=== PATIENT | female | born 1980 | race African-American/Black ===

== ENCOUNTER 2017-03-22 09:22 | Emergency (ER) | payer OTHER ==
[2017-03-22 09:30] VITALS: BMI 37.1
--- NOTE | 2017-03-22 10:41 | PDOC ---
History of Present Illness - General History Source: Patient Exam Limitations: No Limitations <Vilma Campo - Last Filed: 03/22/17 15:28> - General History Source: Patient Exam Limitations: No Limitations - History of Present Illness Initial Comments: 03/22/17 10:41 The patient is a 36 year old female, with a significant past medical history of DM ,HTN, HLD. Sickle cell trait, GERD who presents to the emergency department with chest pain for the past 8 months. Patient complains of intermittent, L sided chest pain radiating to L arm, ranging 5/10 in severity with no associated SOB. Patient states she was recently diagnosed with Breast CA 2 months ago. She reports negative stress tests in the past. Patient presents to the ED for further evaluation. She denies headache or dizziness. She denies fever, chills, abdominal pain, nausea, vomit, diarrhea or constipation. She denies dysuria, frequency, urgency or hematuria. Allergies: NKA Past surgical history: Tubal ligation Social history: Current everyday smoker Family history: Breast CA PCP: Dr. Amos Peterson <Consuelo Mendoza - Last Filed: 03/22/17 15:32> - General Chief Complaint: Chest Pain Stated Complaint: CHEST PAIN Time Seen by Provider: 03/22/17 09:37 Past History - Past Medical History Diabetes: Yes HTN: Yes Hypercholesterolemia: Yes - Psycho/Social/Smoking Cessation Hx Suicidal Ideation: No Smoking History: Current every day smoker Number of Cigarettes Smoked Daily: 1 Information on smoking cessation initiated: Yes 'Breaking Loose' booklet given: 03/22/17 Hx Alcohol Use: No Drug/Substance Use Hx: No Substance Use Type: None Hx Substance Use Treatment: No <Vilma Campo - Last Filed: 03/22/17 15:28> <Consuelo Mendoza - Last Filed: 03/22/17 15:32> - Past Medical History Allergies/Adverse Reactions: Allergies Allergy/AdvReac Type Severity Reaction Status Date / Time No Known Allergies Allergy Verified 03/22/17 09:30 Review of Systems - Review of Systems Able to Perform ROS?: Yes Comments:: 03/22/17 10:41 GENERAL/CONSTITUTIONAL: No fever or chills. No weakness. HEAD, EYES, EARS, NOSE AND THROAT: No change in vision. No ear pain or discharge. No sore throat. GASTROINTESTINAL: No nausea, vomiting, diarrhea or constipation. GENITOURINARY: No dysuria, frequency, or change in urination. CARDIOVASCULAR: + chest pain . No shortness of breath. RESPIRATORY: No cough, wheezing, or hemoptysis. MUSCULOSKELETAL: No joint or muscle swelling or pain. No neck or back pain. SKIN: No rash NEUROLOGIC: No headache, vertigo, loss of consciousness, or change in strength/ sensation. ENDOCRINE: No increased thirst. No abnormal weight change. HEMATOLOGIC/LYMPHATIC: No anemia, easy bleeding, or history of blood clots. ALLERGIC/IMMUNOLOGIC: No hives or skin allergy. <Consuelo Mendoza - Last Filed: 03/22/17 15:32> *Physical Exam - Vital Signs Last Vital Signs Temp Pulse Resp BP Pulse Ox 98.2 F 93 H 18 129/81 100 03/22/17 09:27 03/22/17 09:27 03/22/17 09:27 03/22/17 09:27 03/22/17 09:27 <Vilma Campo - Last Filed: 03/22/17 15:28> - Vital Signs Last Vital Signs Temp Pulse Resp BP Pulse Ox 98.2 F 93 H 18 129/81 100 03/22/17 09:27 03/22/17 09:27 03/22/17 09:27 03/22/17 09:27 03/22/17 09:27 - Physical Exam Comments: 03/22/17 10:41 GENERAL: Awake, alert, and fully oriented, in no acute distress HEAD: No signs of trauma EYES: PERRLA, EOMI, sclera anicteric, conjunctiva clear ENT: Auricles normal inspection, nares patent, Moist mucosa NECK: Normal ROM, supple, no lymphadenopathy, JVD, or masses LUNGS: Breath sounds equal, clear to auscultation bilaterally. No wheezes, and no crackles HEART: Regular rate and rhythm, normal S1 and S2, no murmurs, rubs or gallops ABDOMEN: Soft, nontender, normoactive bowel sounds. No guarding, no rebound. No masses EXTREMITIES: +Obese. Normal range of motion, no edema. No clubbing or cyanosis. No cords, erythema, or tenderness. NEUROLOGICAL: Normal speech SKIN: + Minimal tenderness in L axillary. Warm, Dry, normal turgor, no rashes or lesions noted. <Consuelo Mendoza - Last Filed: 03/22/17 15:32> ED Treatment Course - LABORATORY CBC & Chemistry Diagram: 03/22/17 10:34 03/22/17 11:03 - RADIOLOGY Radiology Studies Ordered: Category Date Time Status CHEST PA & LAT [RAD] Stat Radiology 03/22/17 10:08 Ordered <JahairaVilma - Last Filed: 03/22/17 15:28> - LABORATORY CBC & Chemistry Diagram: 03/22/17 10:34 03/22/17 11:03 <Consuelo Mendoza - Last Filed: 03/22/17 15:32> Medical Decision Making - Medical Decision Making 03/22/17 10:37 36 yo F with h/o left axilla pain x 8 months, . pt states pain comes and goes no triggers. no alleviating factors. no f/c no leg swelling. no recent travel. no trauma. no h/o dvt or pe. has had prior cardiac workup, which was stress test ( dr. Smith habilitative interventionist ) which was normal. also had breast mammogram and ultrasound which showed a left breast mass , recommend 3 mo followup. has family h;/o paternal grandmother with breast ca. her pcp is amos Peterson. no cough. no weigh loss, here for more answers as pain is persitant. on exam pt awake alert lungs clear. heart RRR no mrg. abd soft NT obses. ext wwp no edema no calf tenderness. nuero awake alert . plan: will repeat trop add d dimer r/o pe, cxr r/o mass or other pathology lungs. nini review records. give appropriate outpt referral . 03/22/17 15:18 pt labs unremarkable. cxr negative. ct chest obtained due to dimer 300, noted pulmonary nodules. pt informed. also noted left breast nodule which pt is aware of and prominant left axillary node. pt given copy of report and went over all results with her. will refer her to general surgeon for followup . paged pt pcp dr amos peterson to discuss all indings. givein referral to ortho, and general surgery. <Vilma Campo - Last Filed: 03/22/17 15:28> - Medical Decision Making 03/22/17 15:09 Dr. Amos Peterson paged via phone answering service. 03/22/17 15:17 Dr. Amos Peterson paged via phone answering service. 03/22/17 15:27 Dr. Vera returned the page and the patients case was discussed. Will refer to Dr. Vladimir Mcclendon for surgery <Consuelo Mendoza - Last Filed: 03/22/17 15:32> *DC/Admit/Observation/Transfer - Discharge Dispostion Admit: No <Vilma Campo - Last Filed: 03/22/17 15:28> - Attestations Scribe Attestion: 03/22/17 10:42 Documentation prepared by Consuelo Mendoza, acting as medical office asst for Vilma Campo MD <Consuelo Mendoza - Last Filed: 03/22/17 15:32> Diagnosis at time of Disposition: Left axillary pain - Referrals Referrals: Romelia Lugo MD [Staff Physician] - Amos Peterson MD [Primary Care Provider] - Bryant Quinteros MD [Staff Physician] - Vladimir Mcclendon MD [Staff Physician] - - Patient Instructions Printed Discharge Instructions: DI for Atypical Chest Pain Additional Instructions: follow up with DR Peterson. call to schedule within one week. you should also follow up with a breast surgeon Vladimir LOTT. call to schedule ( may even get you into his office tomorrow ). see referral number to schedule. you should also follow up with DR Quinteros call to schedule ( orthopedist). take ibuprofen 600 mg every 8 hours as needed for pain. return for any problems or concerns. your ct scan today showed a left axillary node which needs to be followed up and pulmonary nodules. the pulmonary nodules will need to be repeat with ct scan in 6 mo.
[2017-03-22 10:44] LABS: BASOPHIL 1.5 % (0-2.0); EOSINOPHIL 4.4 % (0-4.5); MCH 28.2 pg (25.7-33.7); MCHC 33.6 g/dl (32.0-36.0); MEAN CELL VOLUME 83.8 fl (80-96); MEAN PLT VOLUME 7.1 fl (7.5-11.1); NEUTROPHILS 53.9 % (42.8-82.8); PLATELET COUNT 382 K/MM3 (134-434); RDW 13.7 % (11.6-15.6); WHITE BLOOD COUNT 9.6 K/mm3 (4.0-10.0)
--- NOTE | 2017-03-22 11:21 | EKG ---
Test Reason : Blood Pressure : / mmHG Vent. Rate : 088 BPM Atrial Rate : 088 BPM P-R Int : 134 ms QRS Dur : 084 ms QT Int : 342 ms P-R-T Axes : 076 008 047 degrees QTc Int : 413 ms NORMAL SINUS RHYTHM POSSIBLE ANTERIOR INFARCT , AGE UNDETERMINED ABNORMAL ECG NO PREVIOUS ECGS AVAILABLE Confirmed by SANDY PEÑA, HARJEET ([id number]) on 03/22/2017 11:21:03 AM Referred By: Confirmed By:HARJEET DELGADO MD
[2017-03-22 13:17] LABS: ANION GAP 8 (8-16); CALCIUM 9.3 mg/dL (8.5-10.1); CO2 26 mmol/L (21-32); CREATININE 0.6 mg/dL (0.55-1.02); GLUCOSE,RANDOM 99 mg/dL (74-106); SGOT/AST 13 U/L (15-37); SGPT/ALT 26 U/L (12-78)
[2017-03-22 13:21] LABS: ALK PHOS 101 U/L (45-117); BILIRUBIN,TOTAL 0.6 mg/dL (0.2-1.0); CPK 161 IU/L (26-192); TOT PROT 7.7 g/dl (6.4-8.2); TROPONIN I < 0.02 ng/ml (0.00-0.05)
[2017-03-22 15:38] VITALS: BP 134/74; PULSE 80; TEMP 98.6
== END 2017-03-22 15:36 | disposition home or self-care (01) ==
LOC: JER 09:22
DX: M79.622 Pain in left upper arm (principal); I10 Essential (primary) hypertension; E11.9 Type 2 diabetes mellitus without complications; E78.5 Hyperlipidemia, unspecified; D57.3 Sickle-cell trait; K21.9 Gastro-esophageal reflux disease without esophagitis; F17.210 Nicotine dependence, cigarettes, uncomplicated
CPT/HCPCS: 36415; 71020-TC; 71275-TC; 80053; 82553; 84484; 84703; 85025; 85379; 93005; 93010; 99285-25

== ENCOUNTER 2017-05-29 09:26 | Day surgery (SDC) | payer OTHER ==
[2017-05-28 14:56] VITALS: BMI 38.7
[2017-05-29 12:27] VITALS: TEMP 98
[2017-05-29 13:09] VITALS: BP 120/69; PULSE 62
--- NOTE | 2017-05-30 11:44 | PATH ---
Surgical Pathology Report Patient Name: SAILAJA BRYANT Med. Rec. #: [id number] /Age/Gender: 1980 (Age: 37) / F Account: [id number] Location: [facility] Taken: 05/29/2017 Received: 05/29/2017 Reported: 05/30/2017 Physicians: Papi Grant M.D. Specimen(s) Received BX BODY ERYTHEMA Clinical History Persistent abdominal pain despite medication Erythema of body, retained fluid Final Diagnosis STOMACH, BODY, BIOPSY: GASTRIC FUNDIC MUCOSA WITH NO PATHOLOGIC CHANGES. IMMUNOSTAIN FOR H. PYLORI IS NEGATIVE. Electronically Signed Peter Guzman M.D. Gross Description Received in formalin, labeled "biopsy body" are 2 archuleta, irregular portions of soft tissue averaging 0.3 cm. in greatest dimension. The specimens are submitted in toto in one cassette. 05/29/201705/29/2017
== END 2017-05-29 13:08 | disposition home or self-care (01) ==
LOC: JASU-ENDO 09:26
PROVIDERS: ATTEND Internal Medicine Gastroenterology
PROC: 0DB68ZX Excision of Stomach, Via Natural or Artificial Opening Endoscopic, Diagnostic (ICD-10-PCS; principal; 2017-05-29 10:30)
DX: K31.89 Other diseases of stomach and duodenum (principal); R10.13 Epigastric pain
CPT/HCPCS: 84703; 88305-TC; 88342-TC

== ENCOUNTER → 2019-03-17 | Day surgery (SDC) | payer OTHER | LOC: JRADUS 10:05 ==

== ENCOUNTER 2019-07-22 11:12 | Emergency (ER) | payer OTHER ==
[2019-07-22 11:35] VITALS: BMI 26.6
--- NOTE | 2019-07-22 12:07 | PDOC ---
Attending Attestation - Resident Resident Name: Yashira Martin - ED Attending Attestation I have performed the following: I have examined & evaluated the patient, The case was reviewed & discussed with the resident, I agree w/resident's findings & plan, Exceptions are as noted - HPI HPI: 07/22/19 13:51 Ms Pitt is a 39 yo F h/o DM, HTN, HLD, Sickle cell trait, GERD, breast mass s/p lumpectomy, liver mass s/p resection, cervical radiculopathy, chronic back pain w/ slight RLE weakness who presents with worsening of her chronic back pain. She typically takes NSAIDS, Tylenol, Flexeril and gabapentin for pain Since Sunday, her pain has been more severe She has not taken any medication for her pain today. Pain in her back radiates down the back of her right leg On account of her pain, she has had difficulty walking as her pain increases with movement She denies trauma, bowel/bladder incontinence, new or worsening weakness, numbness, or fever but she does report that she has never had such severe pain in her leg before. PMH: DM, GERD, HTN, HLD Meds: Jentadueto, Losartan, Famotidine, Neurontin, Humalog, Atorvastatin, HCTZ, Singulair 07/22/19 14:00 - Physicial Exam PE: 07/22/19 12:07 General: Comfortable, no acute distress HEENT: PERRL, EOMI, MMM, voice normal, normal neck ROM, no LAD Cards: RRR, no murmur appreciated Pulm: Comfortable on room air, clear to auscultation bilaterally Abd: Soft, nontender, nondistended Back: TTP over right lumbar paraspinal m. No erythema, no warmth, no deformity Ext: Atraumatic. No LE edema. ROM intact. Strength 5/5 and equal bilaterally, sensation is intact, dorsi and plantar flexion at the ankle/knee intact Pt has pain with movement at the hip Vasc: Extremities WWP. Skin: Normal color, no rashes or lesions Neuro: A&Ox3, CN grossly intact, normal speech, motor/sensory grossly intact and symmetric Psych: Mood appropriate to situation 07/25/19 07:44 - Medical Decision Making 07/22/19 14:01 39 yo f h/o chronic back pain presenting with a complaint of worsening back pain with radiculopathy S/p imaging Will do: Analgesia Re Assess 07/22/19 14:17 Attempted to re assess this patient Could not find her 07/22/19 14:33 Pt had actually gone to the bathroom Pt was given toradol, Tylenol, Valium (she has transportation home), Lidocaine patch Pt states that her back pain is chronic, unchanged from prior She is requesting to be discharged home. Will follow up with PMD.
--- NOTE | 2019-07-22 12:56 | PDOC ---
History of Present Illness - General Chief Complaint: Back Pain Stated Complaint: BACK PAIN Time Seen by Provider: 07/22/19 12:04 - History of Present Illness Initial Comments: Edwige Pitt is a 39yo woman with a PMH of DM, HTN, HLD, Sickle cell trait, GERD, breast mass s/p lumpectomy, liver mass s/p resection, cervical radiculopathy, chronic back pain w/ slight RLE weakness who presents with worsening of her chronic back pain. She states that she generally takes naproxen, ibuprofen, acetaminiophen, Flexeril and gabapentin for her pain, but since Sunday the pain has been more severe than usual. She is unable to report how often she has been taking her pain medications, but she reports that she has them all available at home. She did not take any medication today. In addition to the chronic back pain, she also reports leg pain is located down the back of her right leg. It does not radiate and is present constantly. She is unable to describe the quality of the pain. Ms Pitt states that she is able to stand and walk but reports increased pain with movement. She denies bowel/bladder incontinence, new or worsening weakness , numbness, or fever but she does report that she has never had such severe pain in her leg before. She does endorse RLE weakness and says that she has had "nerve tests" in the past and one scheduled for later this week. Past History - Past Medical History Allergies/Adverse Reactions: Allergies Allergy/AdvReac Type Severity Reaction Status Date / Time No Known Allergies Allergy Verified 03/22/17 09:30 Home Medications: Ambulatory Orders Aspirin [Aspirin EC] 81 mg PO DAILY 05/28/17 Linagliptin/Metformin HCl [Jentadueto 2.5 mg-500 mg Tab] 1 each PO BID 05/28/17 Losartan Potassium 100 mg PO DAILY 05/28/17 Famotidine 20 mg PO BID 05/29/17 Fenofibrate Nanocrystallized [Fenofibrate] 145 mg PO DAILY 05/29/17 Gabapentin [Neurontin -] 100 mg PO BID 05/29/17 Insulin Lispro [Humalog Kwikpen U-100] 100 unit SQ PRN PRN 05/29/17 Atorvastatin Calcium 40 mg PO HS 07/22/19 Chlorzoxazone 500 mg PO ASDIR PRN 07/22/19 Hydrochlorothiazide [Hctz -] 12.5 mg PO DAILY 07/22/19 Lidocaine 5% Patch [Lidoderm -] 1 patch TP DAILY #7 patch 07/22/19 Montelukast Sodium [Singulair] 10 mg PO HS 07/22/19 Cardiac Disorders: Yes (PALPITATIONS) Diabetes: Yes (NIDDM) GI Disorders: Yes (GERD, CONSTIPATION, IBS) HTN: Yes Hypercholesterolemia: Yes - Psycho Social/Smoking Cessation Hx Smoking History: Smoker current status UNK Have you smoked in the past 12 months: Yes Number of Cigarettes Smoked Daily: 3 'Breaking Loose' booklet given: 03/22/17 Hx Alcohol Use: No Drug/Substance Use Hx: No Substance Use Type: None Hx Substance Use Treatment: No Review of Systems - Review of Systems Comments:: General: No fevers, no chills, no weight or appetite change, no malaise HEENT: No changes in vision, no changes in hearing, no congestion, no sore throat CV: No chest pain, no palpitations, no LE edema Pulm: No SOB, no cough, no wheezing GI: No nausea or vomiting, no change in bowel habits, no melena : No frequency, no urgency, no dysuria Musc: See HPI Skin: No rash, no lesions, no erythema Endo: No excessive thirst, no heat/cold intolerance Heme: No unusual bruising or bleeding, no swollen glands Neuro: No syncope, no numbness/tingling, no focal weakness Vasc: No claudication Psych: No recent change in mood, no SI or HI *Physical Exam - Vital Signs Last Vital Signs Temp Pulse Resp BP Pulse Ox 98.2 F 85 18 143/85 98 07/22/19 11:34 07/22/19 11:34 07/22/19 11:34 07/22/19 11:34 07/22/19 11:34 - Physical Exam General: Comfortable, no acute distress HEENT: PERRL, EOMI, MMM, voice normal, normal neck ROM, no LAD Cards: RRR, no murmur appreciated Pulm: Comfortable on room air, clear to auscultation bilaterally Abd: Soft, nontender, nondistended Back: TTP over right lumbar paraspinal m. No erythema, no warmth, no deformity Rectal: Declined Ext: Atraumatic. No LE edema. ROM intact. Strength 5/5 and equal bilaterally Vasc: Extremities WWP. Skin: Normal color, no rashes or lesions Neuro: A&Ox3, CN grossly intact, normal speech, motor/sensory grossly intact and symmetric Psych: Mood appropriate to situation Medical Decision Making - Medical Decision Making 07/22/19 12:50 Edwige Pitt is a 39yo woman with a PMH of DM, HTN, HLD, Sickle cell trait, GERD, breast mass s/p lumpectomy, liver mass s/p resection, cervical radiculopathy, chronic back pain w/ slight RLE weakness who presents with worsening of her chronic back pain. - Called PMD's office for more information. Dr Escamilla's PA states that she has been seen multiple times for the same symptoms. Has had imaging and seen neuro in the past. Recommending pain control for exacerbation of chronic pain - No red flag symptoms - Discussed pain control w/ Ms Yoandy. - IM toradol, PO acetaminophen, PO valium, lidocaine patch - Reassess 07/22/19 14:20 - Patient received meds 1hr ago, went to reassess. Pt could not be located. Will check back in a few minutes. 07/22/19 14:33 - Patient found. States pain is still severe but requesting to be discharged home. Will follow up with PMD. - As pt is neurologically intact and does not have any objective strength deficits on exam, will d/c home. Discussed with Dr Ismael Martin PGY2 Discharge - Discharge Information Problems reviewed: Yes Clinical Impression/Diagnosis: Acute exacerbation of chronic low back pain Condition: Stable Disposition: HOME - Admission No - Additional Discharge Information Prescriptions: Lidocaine 5% Patch [Lidoderm -] 1 patch TP DAILY #7 patch - Follow up/Referral Referrals: Amos Escamilla MD [Primary Care Provider] - - Patient Discharge Instructions Patient Printed Discharge Instructions: DI for Back Pain With Sciatica Additional Instructions: Discharge Instructions: You were seen in the emergency department for a flare-up of your back pain. Home Care and Follow Up: - Continue to take all of your regular home medications. - 650-1000mg acetaminophen (Tylenol) or 600mg ibuprofen (Motrin or Advil) can be used every 6-8 hours. If needed for continued pain, these medications may be alternated every 3-4 hours. For example, if you take ibuprofen at 9am, you may take acetaminophen at noon, ibuprofen at 3pm, etc. - It is strongly recommended that you take ibuprofen with food to help prevent stomach irritation. - You have been prescribed a numbing patch that contains lidocaine that can be placed over the areas of greatest pain. . This is sometimes expensive as a prescription but is also available over the counter at most pharmacies. (the [id number] patch is 4% lidocaine). The lidocaine patch may be placed for 12 hours then removed for 12 hours. - Try using an ice pack for 20 minutes every hour or a heating pad for additional pain control. These should NOT be used over the lidocaine patch, but you may place them over the areas of pain while the patch is off. - Do not stop moving around. As much as you can tolerate, continue to do light exercise and stretching exercises. Increase your activity level as much as you can tolerate daily. - Please see your regular doctor within the next week for follow up. It is recommended that you discuss a referral to physical therapy with your regular doctor. - Seek immediate medical care if you have significant worsening of your symptoms , you have new weakness in your legs, you have numbness in your legs, you have urinary or bowel incontinence, or you have any other medical emergency. - Post Discharge Activity
[2019-07-22] MEDS ORDERED: LIDOCAINE 5% TOPICAL PATCH TP ONE (12:57)
[2019-07-22] MEDS ORDERED: diazePAM 5 MG TABLET PO ONE (12:57)
[2019-07-22] MEDS ORDERED: KETOROLAC TROMETHAMINE 60 MG/2 ML VIAL IM ONE (12:57)
[2019-07-22] MEDS ORDERED: ACETAMINOPHEN 325 MG TABLET (FP) PO ONE (12:57)
[2019-07-22] MEDS ORDERED: KETOROLAC TROMETHAMINE 60 MG/2 ML VIAL ONE (13:14)
[2019-07-22] MEDS ORDERED: ACETAMINOPHEN 325 MG TABLET (FP) ONE (13:14)
[2019-07-22] MEDS ORDERED: diazePAM 5 MG TABLET ONE (13:15)
[2019-07-22] MEDS ORDERED: LIDOCAINE 5% TOPICAL PATCH ONE (13:15)
[2019-07-22 14:47] VITALS: BP 132/80; PULSE 75; TEMP 98.1
== END 2019-07-22 14:47 | disposition home or self-care (01) ==
LOC: JER 11:12
PROC: 3E0233Z Introduction of Anti-inflammatory into Muscle, Percutaneous Approach (ICD-10-PCS; principal; 2019-07-22)
DX: M54.5 Low back pain (principal); G89.29 Other chronic pain; E11.9 Type 2 diabetes mellitus without complications; I10 Essential (primary) hypertension; E78.5 Hyperlipidemia, unspecified; K21.9 Gastro-esophageal reflux disease without esophagitis; D57.3 Sickle-cell trait; M54.12 Radiculopathy, cervical region
CPT/HCPCS: 96372; 99282-25

== ENCOUNTER 2020-03-26 22:46 | Inpatient (IN) | payer OTHER ==
--- NOTE | 2020-03-26 22:57 | PDOC ---
History of Present Illness - General Chief Complaint: Nausea/Vomiting Stated Complaint: FEVER - History of Present Illness Initial Comments: Pt is a 39yo F with PMH DM, HTN, HLD, breast mass s/p lumpectomy, liver mass s/p resection who presents with fever, nausea, and vomiting. Symptoms began yesterday. States that two weeks ago, she was feeling similarly with fever, nausea, vomiting, and diarrhea and went to her PCP, where they did a covid swab but she did not get her results. States that she felt better over the last 10 days, with improvement of symptoms. However yesterday, states that she started to feel subjectively feverish and nauseous. Yesterday she was able to tolerate PO intake, however reports decreased appetite. This morning, she measured her temp at 102 and this evening it was 101. She has been unable to eat or tolerate water today, she drank coffee in the am which stayed down. She attempted to eat chicken noodle soup this evening, and immediately vomited it afterwards. States vomit is NBNB, foodlike with about 5-6 episodes today. A/w body aches all over. Had a bowel movement yesterday. States that she attempted to take Tylenol, but immediately vomited it afterwards. PCP: Francine PMH:see HPI PSH: see above, tubal ligation Meds: see chart Allergies NKDA Social: smokes 3 cigarettes/day, occasional etoh use, tried marijuana once today for appetite stimulation Review of Systems CONSTITUTIONAL:reports fever, chills, generalized weakness, malaise, loss of appetite HEENT:denies rhinorrhea, nasal congestion, sore throat, throat swelling, difficulty swallowing, mouth swelling, ear pain, eye pain, visual changes CARDIOVASCULAR:reports chest pain (ache everywhere i have a pulse), palpitations RESPIRATORY:reports SOB, wheezing GASTROINTESTINAL: reports abdominal pain, nausea, vomiting; denies diarrhea, constipation, melena, hematochezia GENITOURINARY:denies dysuria, frequency, urgency, hesitancy, hematuria MUSCULOSKELETAL:reports myalgia HEMATOLOGIC/IMMUNOLOGIC:denies easy bleeding, easy bruising ENDOCRINE: denies unexplained weight gain, unexplained weight loss NEUROLOGIC:denies headache, loss of consciousness, focal weakness or paresthesias, dizziness, unsteady gait, mental status changes, bladder or bowel incontinence SKIN:denies rash, itching, pallor Physical Exam General: awake, alert, fully oriented, in mild distress, well developed, well nourished Head: normocephalic, atraumatic Eyes: PERRL, EOMI, anicteric sclera, conjunctiva clear ENT: hearing grossly normal, nares patent, oropharynx clear without exudates. No nasal congestion Moist mucous membranes Neck: supple, normal ROM, no LAD, JVD or masses Lung: equal breath sounds b/l, CTA b/l, diffuse wheezes; no distress, speaks full sentences Heart: tachycardic, normal S1, S2, systolic murmur at LLSB Abdomen: soft, non tender, normoactive bowel sounds, no guarding, rebound, masses Extremities: normal ROM, no edema, no erythema or tenderness, DP/PT pulses 2+ and symmetric, no clubbing, cyanosis Neuro: CN2-12 grossly intact, moves all extremities, normal speech, normal gait, sensation intact Skin: warm, dry, no rashes or lesions noted Past History - Medical History Allergies/Adverse Reactions: Allergies Allergy/AdvReac Type Severity Reaction Status Date / Time No Known Allergies Allergy Verified 03/26/20 22:53 Home Medications: Ambulatory Orders Aspirin [Aspirin EC] 81 mg PO DAILY 05/28/17 Linagliptin/Metformin HCl [Jentadueto 2.5 mg-500 mg Tab] 1 each PO BID 05/28/17 Losartan Potassium 100 mg PO DAILY 05/28/17 Famotidine 20 mg PO BID 05/29/17 Fenofibrate Nanocrystallized [Fenofibrate] 145 mg PO DAILY 05/29/17 Gabapentin [Neurontin -] 100 mg PO BID 05/29/17 Insulin Lispro [Humalog Kwikpen U-100] 100 unit SQ PRN PRN 05/29/17 Atorvastatin Calcium 40 mg PO HS 07/22/19 Chlorzoxazone 500 mg PO ASDIR PRN 07/22/19 Hydrochlorothiazide [Hctz -] 12.5 mg PO DAILY 07/22/19 Lidocaine 5% Patch [Lidoderm -] 1 patch TP DAILY #7 patch 07/22/19 Montelukast Sodium [Singulair] 10 mg PO HS 07/22/19 Omeprazole 20 mg PO DAILY 03/27/20 Cardiac Disorders: Yes (PALPITATIONS) COPD: No Diabetes: Yes (NIDDM) GI Disorders: Yes (GERD, CONSTIPATION, IBS) HTN: Yes Hypercholesterolemia: Yes - Surgical History GI Surgery: (08/2018 partial liver removal) - Reproductive History Is Patient Now?: No - Psycho-Social/Smoking History Smoking History: Current every day smoker Have you smoked in the past 12 months: Yes Number of Cigarettes Smoked Daily: 3 Information on smoking cessation initiated: No 'Breaking Loose' booklet given: 03/22/17 - Substance Abuse Hx (Audit-C & DAST Scrn) How often the patient has a drink containing alcohol: Monthly or less Score: In Men: 4 or > Positive; In Women: 3 or > Positive: 1 Screen Result (Pos requires Nsg. Audit-10AR): Negative *Physical Exam - Vital Signs Last Vital Signs Temp Pulse Resp BP Pulse Ox 101.3 F H 122 H 20 156/60 99 03/26/20 22:49 03/26/20 22:49 03/26/20 22:49 03/26/20 22:49 03/26/20 22:49 ED Treatment Course - LABORATORY CBC & Chemistry Diagram: 03/28/20 06:15 03/28/20 06:15 Medical Decision Making - Medical Decision Making Pt is a 39yo F with PMH DM, HTN, HLD, breast mass s/p lumpectomy, liver mass s/p resection who presents with fever, nausea, and vomiting. Vital Signs Period Temp Pulse Resp BP Sys/Shoemaker Pulse Ox Last 24 Hr 101.3 F 122 20 156/60 99 DDx: COVID, gastroenteritis, gastritis, PUD, GERD Plan: labs, ekg, CXR, IVF, antiemetics, pain control EKG: HR 110bpm, sinus tachycardia, DC 130ms, QRS 86ms, QTc 430ms, no ST changes Labs: leukocytosis, thrombocytosis, no anemia; electrolytes WNL; LDH, ferritin WNL Laboratory Tests 03/26/20 03/26/20 03/26/20 11:04 11:04 11:04 WBC 18.6 H RBC 4.35 Hgb 11.8 Hct 35.7 MCV 82.2 MCH 27.2 MCHC 33.1 RDW 14.0 Plt Count 453 H MPV 7.6 D Absolute Neuts (auto) 15.9 H Neutrophils % 85.2 H D Lymphocytes % 10.6 D Monocytes % 3.6 L Eosinophils % 0.3 D Basophils % 0.3 Nucleated RBC % 0 Sodium 136 Potassium 3.5 Chloride 99 Carbon Dioxide 28 Anion Gap 9 BUN 9.6 Creatinine 0.9 Est GFR (CKD-EPI)AfAm 93.35 Est GFR (CKD-EPI)NonAf 80.54 Random Glucose 173 H Calcium 9.7 Magnesium 1.7 L Ferritin 46.8 Total Bilirubin 0.5 AST 9 L ALT 17 Alkaline Phosphatase 79 LD Total 182 Total Protein 7.6 Albumin 3.7 Serum , Qual Negative Pt signed out to night team pending reassessment Discharge - Discharge Information Problems reviewed: Yes Clinical Impression/Diagnosis: Nausea & vomiting Qualifiers: Vomiting type: unspecified Vomiting Intractability: non-intractable Qualified Code(s): R11.2 - Nausea with vomiting, unspecified Fever Qualifiers: Fever type: unspecified Qualified Code(s): R50.9 - Fever, unspecified Sepsis Qualifiers: Sepsis type: sepsis due to unspecified organism Sepsis acute organ dysfunction status: without acute organ dysfunction Qualified Code(s): A41.9 - Sepsis, unsp ecified organism Condition: Guarded - Admission Yes - Follow up/Referral - Patient Discharge Instructions - Post Discharge Activity
[2020-03-26] MEDS ORDERED: SODIUM CHLORIDE 1,000 ML IV STA (22:59)
[2020-03-26] MEDS ORDERED: ONDANSETRON 4 MG/2 ML VIAL IVPUSH ONE (22:59)
[2020-03-26] MEDS ORDERED: ACETAMINOPHEN 1000 MG/100 ML VIAL (NON FORMULARY) IVPB ONE (23:23)
[2020-03-26] MEDS ORDERED: FAMOTIDINE 20 MG/50 ML IVPB 20 MG/50 ML MG IVPB ONE ×2 (23:24→23:26)
[2020-03-26] MEDS ORDERED: ACETAMINOPHEN INJECTION 100 ML IVPB ONE (23:25)
[2020-03-26 23:31] LABS: BASO % 0.3 % (0-2.0); EOS % 0.3 % (0-4.5); HEMATOCRIT 35.7 % (32.4-45.2); HEMOGLOBIN 11.8 GM/dL (10.7-15.3); LYMPH % 10.6 % (8-40); MCH 27.2 pg (25.7-33.7); MCHC 33.1 g/dl (32.0-36.0); MEAN CELL VOLUME 82.2 fl (80-96); MEAN PLT VOLUME 7.6 fl (7.5-11.1); MONO % 3.6 % (3.8-10.2); NEUT % 85.2 % (42.8-82.8); PLATELET COUNT 453 K/MM3 (134-434); RBC 4.35 M/mm3 (3.60-5.2); WHITE BLOOD COUNT 18.6 K/mm3 (4.0-10.0)
[2020-03-26 23:58] LABS: ALBUMIN 3.7 g/dl (3.4-5.0); BILIRUBIN,TOTAL 0.5 mg/dL (0.2-1); BLOOD UREA NITROGEN 9.6 mg/dL (7-18); CALCIUM 9.7 mg/dL (8.5-10.1); CREATININE 0.9 mg/dL (0.55-1.3); MAGNESIUM 1.7 mg/dL (1.8-2.4); POTASSIUM 3.5 mmol/L (3.5-5.1); TOT PROT 7.6 g/dl (6.4-8.2)
[2020-03-27] MEDS ORDERED: MAGNESIUM SULF 50% (8.12 MEQ/2 ML-1 GM VIAL) IVPB ONE (00:41)
[2020-03-27] MEDS ORDERED: SODIUM CHLORIDE 0.9% 500 ML INFUS.BAG IV ONE (01:00)
[2020-03-27] MEDS ORDERED: MAGNESIUM 1GM/D5W - 1 GM/100 ML IVPB IVPB ONE (01:07)
--- NOTE | 2020-03-27 01:17 | PDOC ---
Documentation entered by Bubba Leon SCRIBE, acting as scribe for Di Perkins MD. Di Perkins MD: This documentation has been prepared by the Carolyn medellin Xhesika, SCRIBE, under my direction and personally reviewed by me in its entirety. I confirm that the documentation accurately reflects all work, treatment, procedures, and medical decision making performed by me. Attending Attestation - Resident Resident Name: DannyMinoo - ED Attending Attestation I have performed the following: I have examined & evaluated the patient, The case was reviewed & discussed with the resident, I agree w/resident's findings & plan - HPI HPI: 03/26/20 23:04 The patient is a 39y/o F with a PMH of DM, HTN, HLD, Sickle cell trait, GERD, breast ca s/p lumpectomy, liver mass s/p resection, cervical radiculopathy, chronic back pain w/ slight RLE weakness who presents to the ED with fever, nausea, vomiting and bodyaches [id number]. Pt states all her family members work and are possibly exposed to COVID. Allergies: NKDA - Physicial Exam PE: 03/26/20 23:26 GENERAL: Awake, alert, and fully oriented, in no acute distress. +febrile HEAD: No signs of trauma EYES: PERRLA, EOMI, sclera anicteric, conjunctiva clear ENT: Auricles normal inspection, hearing grossly normal, nares patent, oropharynx clear without exudates. Moist mucosa NECK: Normal ROM, supple, no lymphadenopathy, JVD, or masses LUNGS: Breath sounds equal, clear to auscultation bilaterally. No wheezes, and no crackles HEART: +tachy, no murmurs, rubs or gallops ABDOMEN: Soft, nontender, normoactive bowel sounds. No guarding, no rebound. No masses EXTREMITIES: Normal range of motion, no edema. No clubbing or cyanosis. No cords, erythema, or tenderness NEUROLOGICAL: Cranial nerves II through XII grossly intact. SKIN: Warm, Dry, normal turgor, no rashes lesions noted. - Medical Decision Making 03/26/20 23:09 DM ,HTN, HLD. Sickle cell trait, GERD 03/26/20 23:58 WBC 18+ with left shift 03/27/20 00:49 Pt's fever is down and she is feeling better; she was hydrated. Pt will be treated with IV magnesium and she will be discharged home. COVID test is pending. 03/27/20 02:01 CXR normal Pt stable for d/c home Discharge - Discharge Information Problems reviewed: Yes Clinical Impression/Diagnosis: Fever, Sepsis Nausea & vomiting Qualifiers: Vomiting type: unspecified Vomiting Intractability: non-intractable Qualified Code(s): R11.2 - Nausea with vomiting, unspecified Condition: Guarded - Follow up/Referral - Patient Discharge Instructions - Post Discharge Activity
--- NOTE | 2020-03-27 01:27 | PDOC ---
*Physical Exam - Vital Signs Last Vital Signs Temp Pulse Resp BP Pulse Ox 101.3 F H 122 H 20 156/60 99 03/26/20 22:49 03/26/20 22:49 03/26/20 22:49 03/26/20 22:49 03/26/20 22:49 - Physical Exam 03/27/20 08:25 GENERAL: Awake, alert, and fully oriented, in no acute distress HEAD: No signs of trauma, normocephalic, atraumatic EYES: PERRLA, EOMI, sclera anicteric, conjunctiva clear ENT: Auricles normal inspection, hearing grossly normal, nares patent, oropharynx clear without exudates. Moist mucosa NECK: Normal ROM, supple, no lymphadenopathy, JVD, or masses LUNGS: No distress, speaks full sentences, clear to auscultation bilaterally HEART: tachycardic and regular rhythm, normal S1 and S2, no murmurs, rubs or gallops, peripheral pulses normal and equal bilaterally. ABDOMEN: Soft, nontender, normoactive bowel sounds. No guarding, no rebound. No masses EXTREMITIES : Normal inspection, Normal range of motion, no edema. No clubbing or cyanosis. NEUROLOGICAL: Cranial nerves II through XII grossly intact. Normal speech, normal gait, no focal sensorimotor deficits SKIN: Warm, Dry, normal turgor, no rashes or lesions noted ED Treatment Course - LABORATORY CBC & Chemistry Diagram: 03/26/20 11:04 03/26/20 11:04 - ADDITIONAL ORDERS Additional order review: Laboratory Results 03/26/20 03/26/20 11:04 11:04 Sodium 136 Potassium 3.5 Chloride 99 Carbon Dioxide 28 Anion Gap 9 BUN 9.6 Creatinine 0.9 Est GFR (CKD-EPI)AfAm 93.35 Est GFR (CKD-EPI)NonAf 80.54 Random Glucose 173 H Calcium 9.7 Magnesium 1.7 L Ferritin 46.8 Total Bilirubin 0.5 AST 9 L ALT 17 Alkaline Phosphatase 79 LD Total 182 Total Protein 7.6 Albumin 3.7 Serum , Qual Negative 03/26/20 11:04 RBC 4.35 MCV 82.2 MCHC 33.1 RDW 14.0 MPV 7.6 D Neutrophils % 85.2 H D Lymphocytes % 10.6 D Monocytes % 3.6 L Eosinophils % 0.3 D Basophils % 0.3 - Medications Given in the ED: ED Medications Discontinued Medications Generic Name Dose Route Start Last Admin Trade Name Lawrence PRN Reason Stop Dose Admin Acetaminophen 1,000 mg 03/26/20 23:23 03/26/20 23:32 Ofirmev Injection - IVPB 03/26/20 23:24 1,000 mg ONCE ONE Administration Sodium Chloride 1,000 mls @ 1,000 mls/hr 03/26/20 22:59 03/26/20 23:24 Normal Saline - IV 03/26/20 23:58 1,000 mls/hr ASDIR STA Administration Famotidine/Sodium Chloride 20 mg in 50 mls @ 100 mls/hr 03/26/20 23:24 03/26/20 23:32 Pepcid 20 Mg Premixed Ivpb - IVPB 03/26/20 23:53 100 mls/hr ONCE ONE Administration Ondansetron HCl 4 mg 03/26/20 22:59 03/26/20 23:25 Zofran Injection IVPUSH 03/26/20 23:00 4 mg ONCE ONE Administration Medical Decision Making - Medical Decision Making 03/27/20 01:24 Pt was signed out from Dr. Minoo Delgado. 39 yo female with pmh of dm, htn, hld presenting to ED for fever, nausea vomitting and fatigue. Pt was given fluids, tylenol and antinausa medication. Pt also given blood work which may be infectious etiology due to COVID. Pt expected to get fluids and mg. Pt currently feels mildly better but will give litre of fluid due to BP being 96/54. 03/27/20 02:37 Pt fever still at 101.2. Pt fever has not dropped. Pt has very high wbc. Pt still not feeling well. Pt case discussed with Dr. Vera and admitted to Dr. Vera. Gave quintonsyn for sepsis \ Discharge - Discharge Information Problems reviewed: Yes Clinical Impression/Diagnosis: Fever, Sepsis Nausea & vomiting Qualifiers: Vomiting type: unspecified Vomiting Intractability: non-intractable Qualified Code(s): R11.2 - Nausea with vomiting, unspecified Condition: Guarded - Admission Yes - Follow up/Referral - Patient Discharge Instructions - Post Discharge Activity
[2020-03-27] MEDS ORDERED: PIPERACILLIN/TAZOB 3.375 GM 3.375 GM/50 ML BAG IVPB ONE (03:02)
[2020-03-27] MEDS: PIPERACILLIN/TAZOB 3.375 GM 3.375 GM in DEXTROSE 5%-WATER - 50 ML IVPB ONE ×2 (03:11→09:10)
[2020-03-27] MEDS ORDERED: ONDANSETRON 4 MG/2 ML VIAL IVPUSH PRN (04:42)
[2020-03-27] MEDS ORDERED: PIPERACILLIN/TAZOBACTAM 3.375 GM VIAL IVPB ONE ×3 (04:56→17:46)
[2020-03-27] MEDS ORDERED: DEXTROSE 5%-WATER - 50 ML IVPB ONE ×3 (04:56→17:47)
[2020-03-27] MEDS: ACETAMINOPHEN 325 MG TABLET (FP) PO PRN ×2 (05:03→18:00)
[2020-03-27] MEDS: PIPERACILLIN/TAZOB 3.375 GM 3.375 GM in DEXTROSE 5%-WATER - 50 ML IVPB SCH ×3 (05:04→17:52)
[2020-03-27 05:38] VITALS: BMI 34.1
[2020-03-27 05:57] LABS: EPI CELLS 12 /uL (0-25.1); HYALINE CASTS 1 /uL (0-3.1); PH,URINE 5.5 (5.0-8.0); URINE APPEARANCE CLOUDY; URINE BILIRUBIN NEGATIVE (NEGATIVE); URINE COLOR YELLOW; URINE GLUCOSE (UA) NEGATIVE (NEGATIVE); URINE KETONE NEGATIVE (NEGATIVE); URINE LEUK ESTERASE 1+ (NEGATIVE); URINE NITRITE POSITIVE (NEGATIVE); URINE PROTEIN TRACE (NEGATIVE); URINE RBC 2686 /uL (0-23.9); URINE UROBILINOGEN 0.2 mg/dL (0.2-1.0); URINE WBC 196 /uL (0-25.8)
--- NOTE | 2020-03-27 10:51 | EKG ---
Test Reason : Blood Pressure : / mmHG Vent. Rate : 110 BPM Atrial Rate : 110 BPM P-R Int : 130 ms QRS Dur : 086 ms QT Int : 318 ms P-R-T Axes : 071 017 055 degrees QTc Int : 430 ms SINUS TACHYCARDIA OTHERWISE NORMAL ECG WHEN COMPARED WITH ECG OF 22-MAR-2017 09:36, NO SIGNIFICANT CHANGE WAS FOUND Confirmed by Meryl Irby ([id number]) on 03/27/2020 10:50:44 AM Referred By: Confirmed By:Meryl Irby
--- NOTE | 2020-03-27 11:19 | CON.ID ---
Consult Consult Specialty:: infectious diseases Referred by:: Reason for Consultation:: fever,generalized pain - History of Present Illness Chief Complaint: generalized pain,fevers History of Present Illness: 39y/o F with a PMH of DM, HTN, HLD, Sickle cell trait, GERD, breast ca s/p lumpectomy, liver mass s/p resection, cervical radiculopathy, chronic back pain w/ slight RLE weakness who presents to the ED with fever, nausea, vomiting and bodyaches [id number]. Pt states all her family members work and are possibly expos ed to [employer]. patient currently feels better but still spiking fevers - History Source History Provided By: Patient Limitations to Obtaining History: No Limitations - Past Medical History ...LMP: 03/15/20 ...: No - Alcohol/Substance Use Hx Alcohol Use: No - Smoking History Smoking history: Current every day smoker Have you smoked in the past 12 months: Yes Aproximately how many cigarettes per day: 3 Home Medications - Allergies Allergies/Adverse Reactions: Allergies Allergy/AdvReac Type Severity Reaction Status Date / Time No Known Allergies Allergy Verified 03/26/20 22:53 - Home Medications Home Medications: Ambulatory Orders Aspirin [Aspirin EC] 81 mg PO DAILY 05/28/17 Linagliptin/Metformin HCl [Jentadueto 2.5 mg-500 mg Tab] 1 each PO BID 05/28/17 Losartan Potassium 100 mg PO DAILY 05/28/17 Famotidine 20 mg PO BID 05/29/17 Fenofibrate Nanocrystallized [Fenofibrate] 145 mg PO DAILY 05/29/17 Gabapentin [Neurontin -] 100 mg PO BID 05/29/17 Insulin Lispro [Humalog Kwikpen U-100] 100 unit SQ PRN PRN 05/29/17 Atorvastatin Calcium 40 mg PO HS 07/22/19 Chlorzoxazone 500 mg PO ASDIR PRN 07/22/19 Hydrochlorothiazide [Hctz -] 12.5 mg PO DAILY 07/22/19 Lidocaine 5% Patch [Lidoderm -] 1 patch TP DAILY #7 patch 07/22/19 Montelukast Sodium [Singulair] 10 mg PO HS 07/22/19 Review of Systems - Review of Systems Constitutional: reports: Fever, Weakness Eyes: reports: No Symptoms HENT: reports: No Symptoms Neck: reports: No Symptoms Cardiovascular: reports: No Symptoms Respiratory: reports: No Symptoms Gastrointestinal: reports: Nausea, Vomiting Genitourinary: reports: No Symptoms Musculoskeletal: reports: No Symptoms Integumentary: reports: No Symptoms Neurological: reports: No Symptoms Endocrine: reports: No Symptoms, Unexplained Weight Gain Psychiatric: reports: No Symptoms Physical Exam Vital Signs: Vital Signs Temperature 102.3 F H 03/27/20 03:30 Pulse Rate 100 H 03/27/20 03:30 Respiratory Rate 18 03/27/20 03:30 Blood Pressure 112/60 03/27/20 03:30 O2 Sat by Pulse Oximetry (%) 98 03/27/20 03:30 Constitutional: Yes: Calm, Mild Distress Eyes: Yes: Conjunctiva Clear HENT: Yes: Atraumatic, Normocephalic Neck: Yes: Supple, Trachea Midline Cardiovascular: Yes: Regular Rate and Rhythm Respiratory: Yes: Regular, CTA Bilaterally Gastrointestinal: Yes: Normal Bowel Sounds, Soft Musculoskeletal: Yes: WNL Extremities: Yes: WNL Neurological: Yes: Alert, Oriented Psychiatric: Yes: Alert, Oriented Labs: CBC, BMP 03/26/20 11:04 03/26/20 11:04 Imaging - Results Chest X-ray: Report Reviewed, Image Reviewed Assessment/Plan this patient with multiple medical issues awaiting covid test pending spikng fevers i am going to start patient on zosyn and wait till the results come back for covid monitor fevers hydration rest as per the team
[2020-03-27] MEDS ORDERED: PATIENT'S OWN MEDICATION (NON-FORMULARY) (Fenofibrate Nanocrystallized [Fenofibrate] 145 M PO SCH (12:00)
[2020-03-27] MEDS: GABAPENTIN 100 MG CAPSULE PO SCH ×2 (12:48→21:18)
[2020-03-27] MEDS: SODIUM CHLORIDE 0.45% 1,000 ML IV SCH (12:48)
[2020-03-27] MEDS: PANTOPRAZOLE 40 MG TABLET PO SCH (12:48)
[2020-03-27] MEDS: ASPIRIN COATED 81 MG TABLET.EC PO SCH (12:48)
[2020-03-27] MEDS: ENOXAPARIN NA (PORCINE) 40 MG/0.4 ML DISP.SYRIN SQ SCH (12:48)
[2020-03-27] MEDS ORDERED: INSULIN (NOVOLOG) ASPART 100 UNITS/ML 10ML VIAL ONE (17:46)
[2020-03-27] MEDS: INSULIN SLIDING SCALE (NOVOLOG) 1 VIAL SQ SCH ×2 (17:52→21:21)
[2020-03-27 18:11] LABS: BASO % 0.3 % (0-2.0); EOS % 0.1 % (0-4.5); HEMATOCRIT 31.7 % (32.4-45.2); HEMOGLOBIN 10.7 GM/dL (10.7-15.3); LYMPH % 14.2 % (8-40); MCH 27.5 pg (25.7-33.7); MCHC 33.7 g/dl (32.0-36.0); MEAN CELL VOLUME 81.5 fl (80-96); MEAN PLT VOLUME 7.8 fl (7.5-11.1); MONO % 5.7 % (3.8-10.2); NEUT % 79.7 % (42.8-82.8); PLATELET COUNT 402 K/MM3 (134-434); RDW 13.7 % (11.6-15.6); WHITE BLOOD COUNT 16.6 K/mm3 (4.0-10.0)
[2020-03-27 18:41] LABS: ALBUMIN 3.2 g/dl (3.4-5.0); BILIRUBIN,TOTAL 0.6 mg/dL (0.2-1); CALCIUM 8.5 mg/dL (8.5-10.1); CREATININE 0.7 mg/dL (0.55-1.3); POTASSIUM 3.5 mmol/L (3.5-5.1); TOT PROT 6.7 g/dl (6.4-8.2)
[2020-03-27] MEDS: MONTELUKAST NA 10 MG TABLET PO SCH (21:18)
[2020-03-27] MEDS: ATORVASTATIN CA 40 MG TABLET (FP) PO SCH (21:18)
--- NOTE | 2020-03-27 23:29 | HP ---
Admitting History and Physical - Admission History of Present Illness: Pt is a 39 y/o female with PMH significant for DM, HTN, HLD, breast mass s/p lumpectomy, liver mass s/p resection who presents with fever, nausea, and vomiting for the past 24 hrs. States that two weeks ago, she was feeling similarly with fever, nausea, vomiting, and diarrhea and went to her PCP, where they did a covid swab but she did not get her results. States that she felt better over the last 10 days, with improvement of symptoms. However states that she started to feel subjectively feverish and nauseous. At home she measured her temp at 102 and has had 4-5 episodes of vomiting. In the ER pt found to have WBC of 18,000. - Past Medical History Cardiovascular: Yes: HTN, Hyperlipdemia ...LMP: 03/15/20 ...: No Endocrine: Yes: Diabetes Mellitus - Smoking History Smoking history: Current every day smoker Have you smoked in the past 12 months: Yes Aproximately how many cigarettes per day: 3 - Alcohol/Substance Use Hx Alcohol Use: No Home Medications - Allergies Allergies/Adverse Reactions: Allergies Allergy/AdvReac Type Severity Reaction Status Date / Time No Known Allergies Allergy Verified 03/26/20 22:53 - Home Medications Home Medications: Ambulatory Orders Aspirin [Aspirin EC] 81 mg PO DAILY 05/28/17 Linagliptin/Metformin HCl [Jentadueto 2.5 mg-500 mg Tab] 1 each PO BID 05/28/17 Losartan Potassium 100 mg PO DAILY 05/28/17 Famotidine 20 mg PO BID 05/29/17 Fenofibrate Nanocrystallized [Fenofibrate] 145 mg PO DAILY 05/29/17 Gabapentin [Neurontin -] 100 mg PO BID 05/29/17 Insulin Lispro [Humalog Kwikpen U-100] 100 unit SQ PRN PRN 05/29/17 Atorvastatin Calcium 40 mg PO HS 07/22/19 Chlorzoxazone 500 mg PO ASDIR PRN 07/22/19 Hydrochlorothiazide [Hctz -] 12.5 mg PO DAILY 07/22/19 Lidocaine 5% Patch [Lidoderm -] 1 patch TP DAILY #7 patch 07/22/19 Montelukast Sodium [Singulair] 10 mg PO HS 07/22/19 Omeprazole 20 mg PO DAILY 03/27/20 Family Medical History Family History: Unremarkable Review of Systems - Review of Systems Constitutional: reports: Fever, Loss of Appetite Eyes: reports: No Symptoms HENT: reports: No Symptoms Neck: reports: No Symptoms Cardiovascular: reports: No Symptoms Respiratory: reports: No Symptoms Gastrointestinal: reports: Nausea, Vomiting Genitourinary: reports: No Symptoms Physical Examination Vital Signs: Vital Signs Temperature 98.8 F 03/27/20 21:13 Pulse Rate 89 03/27/20 21:13 Respiratory Rate 18 03/27/20 03:30 Blood Pressure 109/64 03/27/20 21:13 O2 Sat by Pulse Oximetry (%) 95 03/27/20 21:13 Constitutional: Yes: Well Nourished Eyes: Yes: WNL HENT: Yes: WNL, Atraumatic Neck: Yes: WNL, Supple Cardiovascular: Yes: WNL, Regular Rate and Rhythm Respiratory: Yes: WNL, Regular, CTA Bilaterally Gastrointestinal: Yes: WNL, Normal Bowel Sounds, Soft, Abdomen, Obese Extremities: Yes: WNL Edema: No Neurological: Yes: WNL, Alert, Oriented ...Motor Strength: WNL Labs: CBC, BMP 03/27/20 15:35 03/27/20 15:35 Problem List - Problems (1) Fever Assessment/Plan: Cont IV zosyn Cont IVF Monitor Blood culture/urine culture ID consult COVID pending Code(s): R50.9 - FEVER, UNSPECIFIED Qualifiers: Fever type: unspecified Qualified Code(s): R50.9 - Fever, unspecified (2) Nausea & vomiting Assessment/Plan: IV zofran Advance diet as tolerated Code(s): R11.2 - NAUSEA WITH VOMITING, UNSPECIFIED Qualifiers: Vomiting type: unspecified Vomiting Intractability: non-intractable Qualified Code(s): R11.2 - Nausea with vomiting, unspecified (3) HTN (hypertension) Assessment/Plan: BP stable Code(s): I10 - ESSENTIAL (PRIMARY) HYPERTENSION (4) HLD (hyperlipidemia) Code(s): E78.5 - HYPERLIPIDEMIA, UNSPECIFIED (5) Diabetes Code(s): E11.9 - TYPE 2 DIABETES MELLITUS WITHOUT COMPLICATIONS
[2020-03-28] MEDS ORDERED: PIPERACILLIN/TAZOB 3.375 GM 3.375 GM in DEXTROSE 5%-WATER - 50 ML IVPB SCH (02:00)
[2020-03-28] MEDS ORDERED: DEXTROSE 5%-WATER - 50 ML IVPB ONE ×3 (02:47→17:32)
[2020-03-28] MEDS ORDERED: PIPERACILLIN/TAZOBACTAM 3.375 GM VIAL IVPB ONE ×3 (02:47→17:31)
[2020-03-28] MEDS: PIPERACILLIN/TAZOB 3.375 GM 3.375 GM in DEXTROSE 5%-WATER - 50 ML IVPB SCH ×3 (02:55→18:33)
[2020-03-28] MEDS: INSULIN SLIDING SCALE (NOVOLOG) 1 VIAL SQ SCH ×4 (06:36→23:07)
[2020-03-28 07:52] LABS: EOS % 0.2 % (0-4.5); HEMOGLOBIN 9.9 GM/dL (10.7-15.3); MCH 26.8 pg (25.7-33.7); MEAN PLT VOLUME 7.4 fl (7.5-11.1); MONO % 5.5 % (3.8-10.2)
[2020-03-28 07:58] LABS: BASO % 0.3 % (0-2.0); HEMATOCRIT 29.9 % (32.4-45.2); LYMPH % 18.1 % (8-40); MCHC 33.1 g/dl (32.0-36.0); NEUT % 75.9 % (42.8-82.8); PLATELET COUNT 389 K/MM3 (134-434); RDW 13.7 % (11.6-15.6); WHITE BLOOD COUNT 14.3 K/mm3 (4.0-10.0)
[2020-03-28 08:06] LABS: BILIRUBIN,TOTAL 0.7 mg/dL (0.2-1); BLOOD UREA NITROGEN 3.3 mg/dL (7-18); CALCIUM 8.5 mg/dL (8.5-10.1); CREATININE 0.6 mg/dL (0.55-1.3); TOT PROT 6.4 g/dl (6.4-8.2)
[2020-03-28] MEDS: ASPIRIN COATED 81 MG TABLET.EC PO SCH (09:35)
[2020-03-28] MEDS: GABAPENTIN 100 MG CAPSULE PO SCH ×2 (09:35→23:33)
[2020-03-28] MEDS: PANTOPRAZOLE 40 MG TABLET PO SCH (09:35)
[2020-03-28] MEDS: LIDOCAINE 5% TOPICAL PATCH TP SCH (09:39)
[2020-03-28] MEDS: ENOXAPARIN NA (PORCINE) 40 MG/0.4 ML DISP.SYRIN SQ SCH (09:43)
--- NOTE | 2020-03-28 12:20 | PN ---
Progress Note, Physician History of Present Illness: stable no new issues - Current Medication List Current Medications: Active Medications Acetaminophen (Tylenol -) 650 mg PO Q4H PRN PRN Reason: FEVER OR PAIN 1-5 Last Admin: 03/27/20 18:00 Dose: 650 mg Documented by: Aspirin (Ecotrin -) 81 mg PO DAILY [facility] Last Admin: 03/28/20 09:35 Dose: 81 mg Documented by: Atorvastatin Calcium (Lipitor -) 40 mg PO HS [facility] Last Admin: 03/27/20 21:18 Dose: 40 mg Documented by: Enoxaparin Sodium (Lovenox -) 40 mg SQ DAILY [facility] Last Admin: 03/28/20 09:43 Dose: 40 mg Documented by: Gabapentin (Neurontin -) 100 mg PO BID [facility] Last Admin: 03/28/20 09:35 Dose: 100 mg Documented by: Piperacillin Sod/Tazobactam (Sod 3.375 gm/ Dextrose) 50 mls @ 100 mls/hr IVPB Q8H-IV [facility]; Protocol Last Admin: 03/28/20 09:35 Dose: 100 mls/hr Documented by: Sodium Chloride (1/2 Normal Saline) 1,000 mls @ 75 mls/hr IV ASDIR [facility] Last Admin: 03/27/20 12:48 Dose: 75 mls/hr Documented by: Insulin Aspart (Novolog Vial Sliding Scale -) 1 vial SQ ACHS [facility]; Protocol Last Admin: 03/28/20 06:36 Dose: 2 units Documented by: Lidocaine (Lidoderm Patch -) 1 patch TP DAILY [facility] Last Admin: 03/28/20 09:39 Dose: Not Given Documented by: Miscellaneous (Lidoderm Patch Removal) 1 each MC DAILY@2200 [facility] Montelukast Sodium (Singulair -) 10 mg PO [facility] Last Admin: 03/27/20 21:18 Dose: 10 mg Documented by: Non-Formulary Medication (Fenofibrate Nanocrystallized [Fenofibrate]) 145 mg PO DAILY [facility] Ondansetron HCl (Zofran Injection) 4 mg IVPUSH Q6H PRN PRN Reason: NAUSEA AND/OR VOMITING Last Admin: 03/27/20 05:03 Dose: 4 mg Documented by: Pantoprazole Sodium (Protonix -) 40 mg PO DAILY [facility] Last Admin: 03/28/20 09:35 Dose: 40 mg Documented by: - Objective Vital Signs: Vital Signs Temperature 99.4 F 03/28/20 08:59 Pulse Rate 90 03/28/20 08:59 Respiratory Rate 18 03/28/20 08:59 Blood Pressure 101/67 03/28/20 08:59 O2 Sat by Pulse Oximetry (%) 100 03/28/20 09:00 Constitutional: Yes: No Distress, Calm Cardiovascular: Yes: S1, S2 Respiratory: Yes: Regular, CTA Bilaterally Gastrointestinal: Yes: Normal Bowel Sounds, Soft Musculoskeletal: Yes: WNL Extremities: Yes: WNL Neurological: Yes: Alert, Oriented Psychiatric: Yes: Alert, Oriented Labs: CBC, BMP 03/28/20 06:15 03/28/20 06:15 Assessment/Plan Problem List - Problems (1) Fever Code(s): R50.9 - FEVER, UNSPECIFIED Qualifiers: Fever type: unspecified Qualified Code(s): R50.9 - Fever, unspecified (2) Nausea & vomiting Code(s): R11.2 - NAUSEA WITH VOMITING, UNSPECIFIED Qualifiers: Vomiting type: unspecified Vomiting Intractability: non-intractable Qualified Code(s): R11.2 - Nausea with vomiting, unspecified (3) HTN (hypertension) Code(s): I10 - ESSENTIAL (PRIMARY) HYPERTENSION (4) HLD (hyperlipidemia) Code(s): E78.5 - HYPERLIPIDEMIA, UNSPECIFIED (5) Diabetes Code(s): E11.9 - TYPE 2 DIABETES MELLITUS WITHOUT COMPLICATIONS plan covid pending continue current mgmt await for results rest as per the team
[2020-03-28] MEDS: SODIUM CHLORIDE 0.45% 1,000 ML IV SCH (12:23)
[2020-03-28] MEDS: KCL 10 MEQ IVPB 10 MEQ/100 ML INFUS.BAG IVPB SCH ×3 (15:05→17:38)
[2020-03-28] MEDS: metFORMIN HCL 500 MG TABLET (FP) PO SCH (16:53)
--- NOTE | 2020-03-28 21:36 | PN ---
Progress Note, Physician History of Present Illness: Tmax 99.4 - Current Medication List Current Medications: Active Medications Acetaminophen (Tylenol -) 650 mg PO Q4H PRN PRN Reason: FEVER OR PAIN 1-5 Last Admin: 03/27/20 18:00 Dose: 650 mg Documented by: Aspirin (Ecotrin -) 81 mg PO DAILY [facility] Last Admin: 03/28/20 09:35 Dose: 81 mg Documented by: Atorvastatin Calcium (Lipitor -) 40 mg PO HS [facility] Last Admin: 03/27/20 21:18 Dose: 40 mg Documented by: Enoxaparin Sodium (Lovenox -) 40 mg SQ DAILY [facility] Last Admin: 03/28/20 09:43 Dose: 40 mg Documented by: Fenofibric Acid (Trilipix -) 135 mg PO DAILY [facility] Gabapentin (Neurontin -) 100 mg PO BID [facility] Last Admin: 03/28/20 09:35 Dose: 100 mg Documented by: Piperacillin Sod/Tazobactam (Sod 3.375 gm/ Dextrose) 50 mls @ 100 mls/hr IVPB Q8H-IV [facility]; Protocol Last Admin: 03/28/20 18:33 Dose: 100 mls/hr Documented by: Sodium Chloride (1/2 Normal Saline) 1,000 mls @ 75 mls/hr IV ASDIR [facility] Last Admin: 03/28/20 12:23 Dose: 75 mls/hr Documented by: Insulin Aspart (Novolog Vial Sliding Scale -) 1 vial SQ ACHS [facility]; Protocol Last Admin: 03/28/20 16:53 Dose: Not Given Documented by: Lidocaine (Lidoderm Patch -) 1 patch TP DAILY [facility] Last Admin: 03/28/20 09:39 Dose: Not Given Documented by: Metformin HCl (Glucophage -) 1,000 mg PO BID@0700,1630 [facility] Last Admin: 03/28/20 16:53 Dose: 1,000 mg Documented by: Miscellaneous (Lidoderm Patch Removal) 1 each MC DAILY@2200 [facility] Montelukast Sodium (Singulair -) 10 mg PO [facility] Last Admin: 03/27/20 21:18 Dose: 10 mg Documented by: Ondansetron HCl (Zofran Injection) 4 mg IVPUSH Q6H PRN PRN Reason: NAUSEA AND/OR VOMITING Last Admin: 03/27/20 05:03 Dose: 4 mg Documented by: Pantoprazole Sodium (Protonix -) 40 mg PO DAILY [facility] Last Admin: 03/28/20 09:35 Dose: 40 mg Documented by: - Objective Vital Signs: Vital Signs Temperature 98.8 F 03/28/20 13:00 Pulse Rate 88 03/28/20 13:00 Respiratory Rate 18 03/28/20 08:59 Blood Pressure 110/64 03/28/20 13:00 O2 Sat by Pulse Oximetry (%) 100 03/28/20 13:00 Neck: Yes: WNL, Supple Cardiovascular: Yes: WNL, Regular Rate and Rhythm Respiratory: Yes: WNL, Regular, CTA Bilaterally Gastrointestinal: Yes: WNL, Normal Bowel Sounds, Soft, Abdomen, Obese Labs: CBC, BMP 03/28/20 06:15 03/28/20 06:15 Problem List - Problems (1) Fever Assessment/Plan: Cont IV zosyn Cont IVF Source unknown Monitor Blood culture/urine culture COVID negative Will check ct scan chest/abd/pelvis Code(s): R50.9 - FEVER, UNSPECIFIED Qualifiers: Fever type: unspecified Qualified Code(s): R50.9 - Fever, unspecified (2) Nausea & vomiting Assessment/Plan: IV zofran prn Tolerating diet No further vomiting Code(s): R11.2 - NAUSEA WITH VOMITING, UNSPECIFIED Qualifiers: Vomiting type: unspecified Vomiting Intractability: non-intractable Qualified Code(s): R11.2 - Nausea with vomiting, unspecified (3) HTN (hypertension) Assessment/Plan: BP stable Code(s): I10 - ESSENTIAL (PRIMARY) HYPERTENSION (4) HLD (hyperlipidemia) Assessment/Plan: Cont fenofroic acid Code(s): E78.5 - HYPERLIPIDEMIA, UNSPECIFIED (5) Diabetes Assessment/Plan: Cont sliding scale w/ coverage Added metformin Code(s): E11.9 - TYPE 2 DIABETES MELLITUS WITHOUT COMPLICATIONS
[2020-03-28] MEDS: MONTELUKAST NA 10 MG TABLET PO SCH (23:09)
[2020-03-28] MEDS: ATORVASTATIN CA 40 MG TABLET (FP) PO SCH (23:09)
[2020-03-28] MEDS: LIDOCAINE PATCH REMOVAL MC SCH (23:33)
[2020-03-29] MEDS ORDERED: DEXTROSE 5%-WATER - 50 ML IVPB ONE ×4 (01:28→17:18)
[2020-03-29] MEDS ORDERED: PIPERACILLIN/TAZOBACTAM 3.375 GM VIAL IVPB ONE ×4 (01:28→17:17)
[2020-03-29] MEDS: PIPERACILLIN/TAZOB 3.375 GM 3.375 GM in DEXTROSE 5%-WATER - 50 ML IVPB SCH ×3 (01:33→17:27)
[2020-03-29] MEDS: SODIUM CHLORIDE 0.45% 1,000 ML IV SCH ×2 (01:45→12:20)
[2020-03-29] MEDS: INSULIN SLIDING SCALE (NOVOLOG) 1 VIAL SQ SCH ×4 (06:38→22:02)
[2020-03-29] MEDS: metFORMIN HCL 500 MG TABLET (FP) PO SCH ×3 (06:38→17:36)
[2020-03-29 08:36] LABS: BASO % 0.6 % (0-2.0); EOS % 0.6 % (0-4.5); HEMATOCRIT 29.7 % (32.4-45.2); HEMOGLOBIN 9.9 GM/dL (10.7-15.3); LYMPH % 21.4 % (8-40); MCH 27.7 pg (25.7-33.7); MCHC 33.4 g/dl (32.0-36.0); MEAN CELL VOLUME 83.1 fl (80-96); MEAN PLT VOLUME 7.6 fl (7.5-11.1); MONO % 5.5 % (3.8-10.2); NEUT % 71.9 % (42.8-82.8); PLATELET COUNT 389 K/MM3 (134-434); RBC 3.58 M/mm3 (3.60-5.2); RDW 13.8 % (11.6-15.6); WHITE BLOOD COUNT 9.7 K/mm3 (4.0-10.0)
[2020-03-29 08:55] LABS: BILIRUBIN,TOTAL 0.4 mg/dL (0.2-1); BLOOD UREA NITROGEN 5.3 mg/dL (7-18); CALCIUM 8.9 mg/dL (8.5-10.1); CREATININE 0.6 mg/dL (0.55-1.3); POTASSIUM 4.1 mmol/L (3.5-5.1); TOT PROT 6.8 g/dl (6.4-8.2)
[2020-03-29] MEDS: ENOXAPARIN NA (PORCINE) 40 MG/0.4 ML DISP.SYRIN SQ SCH (09:30)
--- NOTE | 2020-03-29 11:22 | PN ---
Progress Note, Physician History of Present Illness: stable no new issues patient for ct scan - Current Medication List Current Medications: Active Medications Acetaminophen (Tylenol -) 650 mg PO Q4H PRN PRN Reason: FEVER OR PAIN 1-5 Last Admin: 03/27/20 18:00 Dose: 650 mg Documented by: Aspirin (Ecotrin -) 81 mg PO DAILY [facility] Last Admin: 03/28/20 09:35 Dose: 81 mg Documented by: Atorvastatin Calcium (Lipitor -) 40 mg PO HS [facility] Last Admin: 03/28/20 23:09 Dose: 40 mg Documented by: Enoxaparin Sodium (Lovenox -) 40 mg SQ DAILY [facility] Last Admin: 03/29/20 09:30 Dose: 40 mg Documented by: Fenofibric Acid (Trilipix -) 135 mg PO DAILY [facility] Gabapentin (Neurontin -) 100 mg PO BID [facility] Last Admin: 03/28/20 23:33 Dose: Not Given Documented by: Piperacillin Sod/Tazobactam (Sod 3.375 gm/ Dextrose) 50 mls @ 100 mls/hr IVPB Q8H-IV [facility]; Protocol Last Admin: 03/29/20 09:28 Dose: 100 mls/hr Documented by: Sodium Chloride (1/2 Normal Saline) 1,000 mls @ 75 mls/hr IV ASDIR [facility] Last Admin: 03/29/20 01:45 Dose: 75 mls/hr Documented by: Insulin Aspart (Novolog Vial Sliding Scale -) 1 vial SQ ACHS [facility]; Protocol Last Admin: 03/29/20 06:38 Dose: 2 units Documented by: Lidocaine (Lidoderm Patch -) 1 patch TP DAILY [facility] Last Admin: 03/28/20 09:39 Dose: Not Given Documented by: Metformin HCl (Glucophage -) 1,000 mg PO BID@0700,1630 [facility] Last Admin: 03/29/20 06:38 Dose: 1,000 mg Documented by: Miscellaneous (Lidoderm Patch Removal) 1 each MC DAILY@2200 [facility] Last Admin: 03/28/20 23:33 Dose: Not Given Documented by: Montelukast Sodium (Singulair -) 10 mg PO HS [facility] Last Admin: 03/28/20 23:09 Dose: 10 mg Documented by: Ondansetron HCl (Zofran Injection) 4 mg IVPUSH Q6H PRN PRN Reason: NAUSEA AND/OR VOMITING Last Admin: 03/27/20 05:03 Dose: 4 mg Documented by: Pantoprazole Sodium (Protonix -) 40 mg PO DAILY [facility] Last Admin: 03/28/20 09:35 Dose: 40 mg Documented by: - Objective Vital Signs: Vital Signs Temperature 98.5 F 03/29/20 06:00 Pulse Rate 73 03/29/20 06:00 Respiratory Rate 18 03/29/20 06:00 Blood Pressure 101/52 L 03/29/20 06:00 O2 Sat by Pulse Oximetry (%) 98 03/29/20 06:00 Constitutional: Yes: No Distress, Calm Cardiovascular: Yes: S1, S2 Respiratory: Yes: Regular, CTA Bilaterally Gastrointestinal: Yes: Normal Bowel Sounds, Soft Musculoskeletal: Yes: WNL Extremities: Yes: WNL Neurological: Yes: Alert, Oriented Psychiatric: Yes: Alert, Oriented Labs: CBC, BMP 03/29/20 06:40 03/29/20 06:40 Assessment/Plan Problem List - Problems (1) Fever Code(s): R50.9 - FEVER, UNSPECIFIED Qualifiers: Fever type: unspecified Qualified Code(s): R50.9 - Fever, unspecified (2) Nausea & vomiting Code(s): R11.2 - NAUSEA WITH VOMITING, UNSPECIFIED Qualifiers: Vomiting type: unspecified Vomiting Intractability: non-intractable Qualified Code(s): R11.2 - Nausea with vomiting, unspecified (3) HTN (hypertension) Code(s): I10 - ESSENTIAL (PRIMARY) HYPERTENSION (4) HLD (hyperlipidemia) Code(s): E78.5 - HYPERLIPIDEMIA, UNSPECIFIED (5) Diabetes Code(s): E11.9 - TYPE 2 DIABETES MELLITUS WITHOUT COMPLICATIONS 6 uti plan continue abx await for ct scan rest as per the team
[2020-03-29] MEDS: GABAPENTIN 100 MG CAPSULE PO SCH ×2 (12:13→22:05)
[2020-03-29] MEDS: FENOFIBRIC ACID 135 MG CAP PO SCH (12:13)
[2020-03-29] MEDS: LIDOCAINE 5% TOPICAL PATCH TP SCH (12:13)
[2020-03-29] MEDS: ASPIRIN COATED 81 MG TABLET.EC PO SCH (12:13)
[2020-03-29] MEDS: PANTOPRAZOLE 40 MG TABLET PO SCH (12:14)
--- NOTE | 2020-03-29 17:40 | PN ---
Progress Note, Physician History of Present Illness: FEELING GOOD - Current Medication List Current Medications: Active Medications Acetaminophen (Tylenol -) 650 mg PO Q4H PRN PRN Reason: FEVER OR PAIN 1-5 Last Admin: 03/27/20 18:00 Dose: 650 mg Documented by: Aspirin (Ecotrin -) 81 mg PO DAILY [facility] Last Admin: 03/29/20 12:13 Dose: 81 mg Documented by: Atorvastatin Calcium (Lipitor -) 40 mg PO HS [facility] Last Admin: 03/28/20 23:09 Dose: 40 mg Documented by: Enoxaparin Sodium (Lovenox -) 40 mg SQ DAILY [facility] Last Admin: 03/29/20 09:30 Dose: 40 mg Documented by: Fenofibric Acid (Trilipix -) 135 mg PO DAILY [facility] Last Admin: 03/29/20 12:13 Dose: 135 mg Documented by: Gabapentin (Neurontin -) 100 mg PO BID [facility] Last Admin: 03/29/20 12:13 Dose: 100 mg Documented by: Piperacillin Sod/Tazobactam (Sod 3.375 gm/ Dextrose) 50 mls @ 100 mls/hr IVPB Q8H-IV [facility]; Protocol Last Admin: 03/29/20 17:27 Dose: 100 mls/hr Documented by: Sodium Chloride (1/2 Normal Saline) 1,000 mls @ 75 mls/hr IV ASDIR [facility] Last Admin: 03/29/20 12:20 Dose: 75 mls/hr Documented by: Insulin Aspart (Novolog Vial Sliding Scale -) 1 vial SQ [facility]; Protocol Last Admin: 03/29/20 17:27 Dose: 2 units Documented by: Lidocaine (Lidoderm Patch -) 1 patch TP DAILY [facility] Last Admin: 03/29/20 12:13 Dose: Not Given Documented by: Metformin HCl (Glucophage -) 1,000 mg PO BID@0700,1630 [facility] Last Admin: 03/29/20 17:36 Dose: Not Given Documented by: Miscellaneous (Lidoderm Patch Removal) 1 each MC DAILY@2200 [facility] Last Admin: 03/28/20 23:33 Dose: Not Given Documented by: Montelukast Sodium (Singulair -) 10 mg PO HS [facility] Last Admin: 03/28/20 23:09 Dose: 10 mg Documented by: Ondansetron HCl (Zofran Injection) 4 mg IVPUSH Q6H PRN PRN Reason: NAUSEA AND/OR VOMITING Last Admin: 03/27/20 05:03 Dose: 4 mg Documented by: Pantoprazole Sodium (Protonix -) 40 mg PO DAILY [facility] Last Admin: 03/29/20 12:14 Dose: 40 mg Documented by: - Objective Vital Signs: Vital Signs Temperature 98.9 F 03/29/20 15:04 Pulse Rate 86 03/29/20 15:04 Respiratory Rate 18 03/29/20 15:04 Blood Pressure 131/72 03/29/20 15:04 O2 Sat by Pulse Oximetry (%) 100 03/29/20 15:04 Constitutional: Yes: No Distress HENT: Yes: Atraumatic Neck: Yes: Supple Cardiovascular: Yes: Regular Rate and Rhythm Respiratory: Yes: CTA Bilaterally Gastrointestinal: Yes: Normal Bowel Sounds Extremities: Yes: WNL Neurological: Yes: Alert, Oriented Labs: CBC, BMP 03/29/20 06:40 03/29/20 06:40 Problem List - Problems (1) Diabetes Assessment/Plan: MONITOR ON INSULIN AND BGMS Code(s): E11.9 - TYPE 2 DIABETES MELLITUS WITHOUT COMPLICATIONS (2) Fever Code(s): R50.9 - FEVER, UNSPECIFIED Qualifiers: Fever type: unspecified Qualified Code(s): R50.9 - Fever, unspecified (3) HLD (hyperlipidemia) Assessment/Plan: ON MEDS Code(s): E78.5 - HYPERLIPIDEMIA, UNSPECIFIED (4) HTN (hypertension) Code(s): I10 - ESSENTIAL (PRIMARY) HYPERTENSION (5) Nausea & vomiting Assessment/Plan: RESOLVED Code(s): R11.2 - NAUSEA WITH VOMITING, UNSPECIFIED Qualifiers: Vomiting type: unspecified Vomiting Intractability: non-intractable Jos lified Code(s): R11.2 - Nausea with vomiting, unspecified (6) UTI (urinary tract infection) Assessment/Plan: ON ABX CXS NOTED Code(s): N39.0 - URINARY TRACT INFECTION, SITE NOT SPECIFIED Assessment/Plan COVERING FOR DR KAUR TODAY
[2020-03-29] MEDS: LIDOCAINE PATCH REMOVAL MC SCH (21:12)
[2020-03-29] MEDS: ATORVASTATIN CA 40 MG TABLET (FP) PO SCH (22:05)
[2020-03-29] MEDS: MONTELUKAST NA 10 MG TABLET PO SCH (22:05)
[2020-03-30] MEDS ORDERED: PIPERACILLIN/TAZOBACTAM 3.375 GM VIAL IVPB ONE ×3 (02:02→17:50)
[2020-03-30] MEDS ORDERED: DEXTROSE 5%-WATER - 50 ML IVPB ONE ×3 (02:03→17:50)
[2020-03-30] MEDS: PIPERACILLIN/TAZOB 3.375 GM 3.375 GM in DEXTROSE 5%-WATER - 50 ML IVPB SCH ×3 (02:32→17:57)
[2020-03-30] MEDS: metFORMIN HCL 500 MG TABLET (FP) PO SCH ×2 (06:12→16:25)
[2020-03-30] MEDS: INSULIN SLIDING SCALE (NOVOLOG) 1 VIAL SQ SCH ×4 (06:24→21:54)
--- NOTE | 2020-03-30 08:50 | PN ---
Progress Note, Physician History of Present Illness: stable feels better - Current Medication List Current Medications: Active Medications Acetaminophen (Tylenol -) 650 mg PO Q4H PRN PRN Reason: FEVER OR PAIN 1-5 Last Admin: 03/27/20 18:00 Dose: 650 mg Documented by: Aspirin (Ecotrin -) 81 mg PO DAILY [facility] Last Admin: 03/29/20 12:13 Dose: 81 mg Documented by: Atorvastatin Calcium (Lipitor -) 40 mg PO [facility] Last Admin: 03/29/20 22:05 Dose: 40 mg Documented by: Enoxaparin Sodium (Lovenox -) 40 mg SQ DAILY [facility] Last Admin: 03/29/20 09:30 Dose: 40 mg Documented by: Fenofibric Acid (Trilipix -) 135 mg PO DAILY [facility] Last Admin: 03/29/20 12:13 Dose: 135 mg Documented by: Gabapentin (Neurontin -) 100 mg PO BID [facility] Last Admin: 03/29/20 22:05 Dose: Not Given Documented by: Piperacillin Sod/Tazobactam (Sod 3.375 gm/ Dextrose) 50 mls @ 100 mls/hr IVPB Q8H-IV [facility]; Protocol Last Admin: 03/30/20 02:32 Dose: 100 mls/hr Documented by: Sodium Chloride (1/2 Normal Saline) 1,000 mls @ 75 mls/hr IV ASDIR [facility] Last Admin: 03/29/20 12:20 Dose: 75 mls/hr Documented by: Insulin Aspart (Novolog Vial Sliding Scale -) 1 vial SQ [facility]; Protocol Last Admin: 03/30/20 06:24 Dose: 2 units Documented by: Lidocaine (Lidoderm Patch -) 1 patch TP DAILY [facility] Last Admin: 03/29/20 12:13 Dose: Not Given Documented by: Metformin HCl (Glucophage -) 1,000 mg PO BID@0700,1630 [facility] Last Admin: 03/30/20 06:12 Dose: Not Given Documented by: Miscellaneous (Lidoderm Patch Removal) 1 each MC DAILY@2200 [facility] Last Admin: 03/29/20 21:12 Dose: Not Given Documented by: Montelukast Sodium (Singulair -) 10 mg PO [facility] Last Admin: 03/29/20 22:05 Dose: 10 mg Documented by: Ondansetron HCl (Zofran Injection) 4 mg IVPUSH Q6H PRN PRN Reason: NAUSEA AND/OR VOMITING Last Admin: 03/27/20 05:03 Dose: 4 mg Documented by: Pantoprazole Sodium (Protonix -) 40 mg PO DAILY [facility] Last Admin: 03/29/20 12:14 Dose: 40 mg Documented by: - Objective Vital Signs: Vital Signs Temperature 98.0 F 03/30/20 06:00 Pulse Rate 73 03/30/20 06:00 Respiratory Rate 18 03/30/20 06:00 Blood Pressure 113/61 03/30/20 06:00 O2 Sat by Pulse Oximetry (%) 98 03/30/20 06:00 Constitutional: Yes: No Distress, Calm Cardiovascular: Yes: S1, S2 Respiratory: Yes: Regular, CTA Bilaterally Gastrointestinal: Yes: Normal Bowel Sounds, Soft Musculoskeletal: Yes: WNL Extremities: Yes: WNL Neurological: Yes: Alert, Oriented Psychiatric: Yes: Alert, Oriented Labs: CBC, BMP 03/29/20 06:40 03/29/20 06:40 - ....Imaging Cat Scan: Report Reviewed, Image Reviewed Assessment/Plan Problem List - Problems (1) Fever Code(s): R50.9 - FEVER, UNSPECIFIED Qualifiers: Fever type: unspecified Qualified Code(s): R50.9 - Fever, unspecified (2) Nausea & vomiting Code(s): R11.2 - NAUSEA WITH VOMITING, UNSPECIFIED Qualifiers: Vomiting type: unspecified Vomiting Intractability: non-intractable Qualified Code(s): R11.2 - Nausea with vomiting, unspecified (3) HTN (hypertension) Code(s): I10 - ESSENTIAL (PRIMARY) HYPERTENSION (4) HLD (hyperlipidemia) Code(s): E78.5 - HYPERLIPIDEMIA, UNSPECIFIED (5) Diabetes Code(s): E11.9 - TYPE 2 DIABETES MELLITUS WITHOUT COMPLICATIONS 6 uti plan continue abx ct scan seen and result noted i would continue iv abx for one more day if patient remains [place] will switch to oral tomorrow rest as per the team
[2020-03-30] MEDS ORDERED: PT OWN MED DRAWER 7, Y5N ONE (10:11)
[2020-03-30] MEDS: FENOFIBRIC ACID 135 MG CAP PO SCH (10:22)
[2020-03-30] MEDS: GABAPENTIN 100 MG CAPSULE PO SCH ×2 (10:22→21:51)
[2020-03-30] MEDS: ASPIRIN COATED 81 MG TABLET.EC PO SCH (10:22)
[2020-03-30] MEDS: PANTOPRAZOLE 40 MG TABLET PO SCH (10:22)
[2020-03-30] MEDS: ENOXAPARIN NA (PORCINE) 40 MG/0.4 ML DISP.SYRIN SQ SCH (10:23)
[2020-03-30] MEDS: LIDOCAINE 5% TOPICAL PATCH TP SCH (10:23)
--- NOTE | 2020-03-30 21:32 | PN ---
Progress Note, Physician History of Present Illness: No new complaints - Current Medication List Current Medications: Active Medications Acetaminophen (Tylenol -) 650 mg PO Q4H PRN PRN Reason: FEVER OR PAIN 1-5 Last Admin: 03/27/20 18:00 Dose: 650 mg Documented by: Aspirin (Ecotrin -) 81 mg PO DAILY [facility] Last Admin: 03/30/20 10:22 Dose: 81 mg Documented by: Atorvastatin Calcium (Lipitor -) 40 mg PO [facility] Last Admin: 03/29/20 22:05 Dose: 40 mg Documented by: Enoxaparin Sodium (Lovenox -) 40 mg SQ DAILY [facility] Last Admin: 03/30/20 10:23 Dose: Not Given Documented by: Fenofibric Acid (Trilipix -) 135 mg PO DAILY [facility] Last Admin: 03/30/20 10:22 Dose: 135 mg Documented by: Gabapentin (Neurontin -) 100 mg PO BID [facility] Last Admin: 03/30/20 10:22 Dose: 100 mg Documented by: Piperacillin Sod/Tazobactam (Sod 3.375 gm/ Dextrose) 50 mls @ 100 mls/hr IVPB Q8H-IV [facility]; Protocol Last Admin: 03/30/20 17:57 Dose: 100 mls/hr Documented by: Insulin Aspart (Novolog Vial Sliding Scale -) 1 vial SQ [facility]; Protocol Last Admin: 03/30/20 16:43 Dose: Not Given Documented by: Lidocaine (Lidoderm Patch -) 1 patch TP DAILY [facility] Last Admin: 03/30/20 10:23 Dose: Not Given Documented by: Metformin HCl (Glucophage -) 1,000 mg PO BID@0700,1630 [facility] Last Admin: 03/30/20 16:25 Dose: Not Given Documented by: Miscellaneous (Lidoderm Patch Removal) 1 each MC DAILY@2200 [facility] Last Admin: 03/29/20 21:12 Dose: Not Given Documented by: Montelukast Sodium (Singulair -) 10 mg PO [facility] Last Admin: 03/29/20 22:05 Dose: 10 mg Documented by: Ondansetron HCl (Zofran Injection) 4 mg IVPUSH Q6H PRN PRN Reason: NAUSEA AND/OR VOMITING Last Admin: 03/27/20 05:03 Dose: 4 mg Documented by: Pantoprazole Sodium (Protonix -) 40 mg PO DAILY [facility] Last Admin: 03/30/20 10:22 Dose: 40 mg Documented by: - Objective Vital Signs: Vital Signs Temperature 98.3 F 03/30/20 20:27 Pulse Rate 74 03/30/20 20:27 Respiratory Rate 18 03/30/20 20:27 Blood Pressure 134/66 03/30/20 20:27 O2 Sat by Pulse Oximetry (%) 98 03/30/20 20:27 Cardiovascular: Yes: WNL, Regular Rate and Rhythm Respiratory: Yes: WNL, Regular, CTA Bilaterally Gastrointestinal: Yes: WNL, Normal Bowel Sounds, Soft Labs: CBC, BMP 03/29/20 06:40 03/29/20 06:40 Problem List - Problems (1) Fever Assessment/Plan: Cont IV zosyn WBC bere Monitor Blood culture/urine culture wc remain negative COVID negative Ct scan chest/abd/pelvis did not show any acute pathology Probable change to PO antibx in am Code(s): R50.9 - FEVER, UNSPECIFIED Qualifiers: Fever type: unspecified Qualified Code(s): R50.9 - Fever, unspecified (2) Nausea & vomiting Assessment/Plan: IV zofran prn Tolerating diet No further vomiting Code(s): R11.2 - NAUSEA WITH VOMITING, UNSPECIFIED Qualifiers: Vomiting type: unspecified Vomiting Intractability: non-intractable Qualified Code(s): R11.2 - Nausea with vomiting, unspecified (3) HTN (hypertension) Assessment/Plan: BP stable Code(s): I10 - ESSENTIAL (PRIMARY) HYPERTENSION (4) HLD (hyperlipidemia) Assessment/Plan: Cont fenofroic acid Code(s): E78.5 - HYPERLIPIDEMIA, UNSPECIFIED (5) Diabetes Assessment/Plan: Cont sliding scale w/ coverage Added metformin Code(s): E11.9 - TYPE 2 DIABETES MELLITUS WITHOUT COMPLICATIONS
[2020-03-30] MEDS: MONTELUKAST NA 10 MG TABLET PO SCH (21:51)
[2020-03-30] MEDS: ATORVASTATIN CA 40 MG TABLET (FP) PO SCH (21:51)
[2020-03-30] MEDS: LIDOCAINE PATCH REMOVAL MC SCH (21:51)
[2020-03-31] MEDS ORDERED: DEXTROSE 5%-WATER - 50 ML IVPB ONE ×2 (00:49→09:33)
[2020-03-31] MEDS ORDERED: PIPERACILLIN/TAZOBACTAM 3.375 GM VIAL IVPB ONE ×2 (00:49→09:33)
[2020-03-31] MEDS: PIPERACILLIN/TAZOB 3.375 GM 3.375 GM in DEXTROSE 5%-WATER - 50 ML IVPB SCH ×2 (01:16→09:38)
[2020-03-31] MEDS: INSULIN SLIDING SCALE (NOVOLOG) 1 VIAL SQ SCH ×2 (06:15→11:24)
[2020-03-31] MEDS: metFORMIN HCL 500 MG TABLET (FP) PO SCH (06:15)
--- NOTE | 2020-03-31 09:28 | PN ---
Progress Note, Physician History of Present Illness: stable no new issues - Current Medication List Current Medications: Active Medications Acetaminophen (Tylenol -) 650 mg PO Q4H PRN PRN Reason: FEVER OR PAIN 1-5 Last Admin: 03/27/20 18:00 Dose: 650 mg Documented by: Aspirin (Ecotrin -) 81 mg PO DAILY [facility] Last Admin: 03/30/20 10:22 Dose: 81 mg Documented by: Atorvastatin Calcium (Lipitor -) 40 mg PO [facility] Last Admin: 03/30/20 21:51 Dose: 40 mg Documented by: Enoxaparin Sodium (Lovenox -) 40 mg SQ DAILY [facility] Last Admin: 03/30/20 10:23 Dose: Not Given Documented by: Fenofibric Acid (Trilipix -) 135 mg PO DAILY [facility] Last Admin: 03/30/20 10:22 Dose: 135 mg Documented by: Gabapentin (Neurontin -) 100 mg PO BID [facility] Last Admin: 03/30/20 21:51 Dose: 100 mg Documented by: Piperacillin Sod/Tazobactam (Sod 3.375 gm/ Dextrose) 50 mls @ 100 mls/hr IVPB Q8H-IV [facility]; Protocol Last Admin: 03/31/20 01:16 Dose: 100 mls/hr Documented by: Insulin Aspart (Novolog Vial Sliding Scale -) 1 vial SQ [facility]; Protocol Last Admin: 03/31/20 06:15 Dose: 2 units Documented by: Lidocaine (Lidoderm Patch -) 1 patch TP DAILY [facility] Last Admin: 03/30/20 10:23 Dose: Not Given Documented by: Metformin HCl (Glucophage -) 1,000 mg PO BID@0700,1630 [facility] Last Admin: 03/31/20 06:15 Dose: Not Given Documented by: Miscellaneous (Lidoderm Patch Removal) 1 each MC DAILY@2200 [facility] Last Admin: 03/30/20 21:51 Dose: Not Given Documented by: Montelukast Sodium (Singulair -) 10 mg PO [facility] Last Admin: 03/30/20 21:51 Dose: 10 mg Documented by: Ondansetron HCl (Zofran Injection) 4 mg IVPUSH Q6H PRN PRN Reason: NAUSEA AND/OR VOMITING Last Admin: 03/27/20 05:03 Dose: 4 mg Documented by: Pantoprazole Sodium (Protonix -) 40 mg PO DAILY [facility] Last Admin: 03/30/20 10:22 Dose: 40 mg Documented by: - Objective Vital Signs: Vital Signs Temperature 98.0 F 03/31/20 06:00 Pulse Rate 66 03/31/20 06:00 Respiratory Rate 18 03/31/20 06:00 Blood Pressure 114/65 03/31/20 06:00 O2 Sat by Pulse Oximetry (%) 98 03/31/20 06:00 Constitutional: Yes: No Distress, Calm, Obese HENT: Yes: Atraumatic, Normocephalic Neck: Yes: Supple, Trachea Midline Cardiovascular: Yes: Regular Rate and Rhythm Respiratory: Yes: Regular, CTA Bilaterally Gastrointestinal: Yes: Normal Bowel Sounds, Soft Musculoskeletal: Yes: WNL Extremities: Yes: WNL Neurological: Yes: Alert, Oriented Psychiatric: Yes: Alert, Oriented Labs: CBC, BMP 03/29/20 06:40 03/29/20 06:40 Assessment/Plan Problem List - Problems (1) Fever Code(s): R50.9 - FEVER, UNSPECIFIED Qualifiers: Fever type: unspecified Qualified Code(s): R50.9 - Fever, unspecified (2) Nausea & vomiting Code(s): R11.2 - NAUSEA WITH VOMITING, UNSPECIFIED Qualifiers: Vomiting type: unspecified Vomiting Intractability: non-intractable Qualified Code(s): R11.2 - Nausea with vomiting, unspecified (3) HTN (hypertension) Code(s): I10 - ESSENTIAL (PRIMARY) HYPERTENSION (4) HLD (hyperlipidemia) Code(s): E78.5 - HYPERLIPIDEMIA, UNSPECIFIED (5) Diabetes Code(s): E11.9 - TYPE 2 DIABETES MELLITUS WITHOUT COMPLICATIONS 6 uti plan continue abx ct scan seen and result noted should switch to oral cephalosporns on discharge for another 8 days rest as per the team
[2020-03-31] MEDS ORDERED: PT OWN MED DRAWER 7, Y5N ONE (09:33)
[2020-03-31] MEDS: ASPIRIN COATED 81 MG TABLET.EC PO SCH (09:39)
[2020-03-31] MEDS: PANTOPRAZOLE 40 MG TABLET PO SCH (09:39)
[2020-03-31] MEDS: GABAPENTIN 100 MG CAPSULE PO SCH (09:39)
[2020-03-31] MEDS: FENOFIBRIC ACID 135 MG CAP PO SCH (09:39)
[2020-03-31] MEDS: LIDOCAINE 5% TOPICAL PATCH TP SCH (09:45)
[2020-03-31] MEDS: ENOXAPARIN NA (PORCINE) 40 MG/0.4 ML DISP.SYRIN SQ SCH (09:45)
[2020-03-31 10:55] VITALS: BP 125/66; PULSE 73; TEMP 98.4
--- NOTE | 2020-04-11 23:17 | DS ---
Physical Examination Vital Signs: Vital Signs Temperature 98.4 F 03/31/20 10:00 Pulse Rate 73 03/31/20 10:00 Respiratory Rate 20 03/31/20 10:00 Blood Pressure 125/66 03/31/20 10:00 O2 Sat by Pulse Oximetry (%) 99 03/31/20 10:00 Labs: CBC, BMP 03/29/20 06:40 03/29/20 06:40 Discharge Summary Problems reviewed: Yes Reason For Visit: FEVER, NAUSEA AND VOMITING Sepsis Fever HTN HLD Diabetes Nausea and vomiting Hospital Course: Pt is a 39 y/o female with PMH significant for DM, HTN, HLD, breast mass s/p lumpectomy, liver mass s/p resection who presented to the ER with fever, nausea, and vomiting.Pt admitted and started on IV antibiotics and treated for sepsis wc resolved. Pt was seen by infectious disease. Pt had blood cultures and urine culture wc were negative. pt was changed to po antibx and dc'ed home in stable condition. Condition: Good - Instructions Diet, Activity, Other Instructions: diabetic diet See Dr Amos Escamilla in 1 week Referrals: Amos Escamilla MD [Primary Care Provider] - Disposition: HOME - Home Medications Comprehensive Discharge Medication List: Ambulatory Orders Aspirin [Aspirin EC] 81 mg PO DAILY 05/28/17 Linagliptin/Metformin HCl [Jentadueto 2.5 mg-500 mg Tab] 1 each PO BID 05/28/17 Losartan Potassium 100 mg PO DAILY 05/28/17 Famotidine 20 mg PO BID 05/29/17 Fenofibrate Nanocrystallized [Fenofibrate] 145 mg PO DAILY 05/29/17 Gabapentin [Neurontin -] 100 mg PO BID 05/29/17 Insulin Lispro [Humalog Kwikpen U-100] 100 unit SQ PRN PRN 05/29/17 Atorvastatin Calcium 40 mg PO HS 07/22/19 Chlorzoxazone 500 mg PO [facility] PRN 07/22/19 Hydrochlorothiazide [Hctz -] 12.5 mg PO DAILY 07/22/19 Lidocaine 5% Patch [Lidoderm -] 1 patch TP DAILY #7 patch 07/22/19 Montelukast Sodium [Singulair] 10 mg PO HS 07/22/19 Cefuroxime Axetil [Ceftin -] 500 mg PO Q12H #16 tablet 03/31/20 Pantoprazole Sodium [Protonix -] 40 mg PO DAILY #30 tablet.ec 03/31/20
== END 2020-03-31 13:25 | disposition home or self-care (01) | DRG 720 ==
LOC: JER 22:46 → JERBED 03-27 02:39 → J6S 03-27 03:47
PROVIDERS: ADMIT Internal Medicine; ATTEND Internal Medicine
DX: A41.9 Sepsis, unspecified organism (principal); R50.9 Fever, unspecified; I10 Essential (primary) hypertension; N39.0 Urinary tract infection, site not specified; E11.9 Type 2 diabetes mellitus without complications; E78.5 Hyperlipidemia, unspecified; F17.210 Nicotine dependence, cigarettes, uncomplicated; D57.3 Sickle-cell trait; K21.9 Gastro-esophageal reflux disease without esophagitis; M54.12 Radiculopathy, cervical region; Z79.4 Long term (current) use of insulin; R11.2 Nausea with vomiting, unspecified; Z20.828 Contact with and (suspected) exposure to other viral communicable diseases; D72.829 Elevated white blood cell count, unspecified
CPT/HCPCS: 36415; 71045-TC-FY; 71260-TC; 74177-TC; 80053; 81003; 82728; 82962; 83605; 83615; 83735; 84703; 85025; 86769; 87040; 87086; 87186; 93005; 93010; 99285-25; J0131; Q9967; U0003

== ENCOUNTER 2022-03-05 16:22 | Emergency (ER) | payer OTHER ==
[2022-03-05 16:55] VITALS: BMI 33.9
[2022-03-05] MEDS ORDERED: ACETAMINOPHEN 1000 MG/100 ML BAG IVPB ONE (18:13)
[2022-03-05] MEDS ORDERED: ONDANSETRON 4 MG/2 ML VIAL IVPUSH ONE (18:13)
[2022-03-05] MEDS ORDERED: HEPARIN NA (PORCINE) 5,000 UNITS/ML 1ML VIAL IVPUSH ONE (18:21)
[2022-03-05] MEDS ORDERED: ACETAMINOPHEN INJECTION 100 ML IVPB ONE ×2 (18:25→19:11)
[2022-03-05] MEDS ORDERED: ONDANSETRON 4 MG/2 ML VIAL ONE (18:25)
[2022-03-05 18:58] LABS: EPI CELLS 3 /uL (0-25.1); HYALINE CASTS 13 /uL (0-3.1); PH,URINE 5.5 (5.0-8.0); URINE APPEARANCE CLOUDY; URINE BACTERIA >9,000 /uL (0-1359); URINE BILIRUBIN NEGATIVE (NEGATIVE); URINE COLOR YELLOW; URINE GLUCOSE (UA) TRACE (NEGATIVE); URINE KETONE NEGATIVE (NEGATIVE); URINE LEUK ESTERASE 2+ (NEGATIVE); URINE NITRITE POSITIVE (NEGATIVE); URINE PROTEIN 2+ (NEGATIVE); URINE RBC 216 /uL (0-23.9); URINE UROBILINOGEN 0.2 mg/dL (0.2-1.0); URINE WBC 406 /uL (0-25.8)
[2022-03-05 19:42] LABS: BASO % 0.3 % (0-2.0); EOS % 0.1 % (0-4.5); HEMATOCRIT 41.9 % (32.4-45.2); HEMOGLOBIN 14.1 GM/dL (10.7-15.3); LYMPH % 11.8 % (8-40); MCHC 33.7 g/dl (32.0-36.0); MEAN CELL VOLUME 83.1 fl (80-96); MEAN PLT VOLUME 7.9 fl (7.5-11.1); NEUT % 83.8 % (42.8-82.8); PLATELET COUNT 405 10^3/uL (134-434); RBC 5.04 M/mm3 (3.60-5.2); RDW 13.5 % (11.6-15.6); WHITE BLOOD COUNT 18.1 K/mm3 (4.0-10.0)
[2022-03-05 19:56] LABS: CALCIUM 9.7 mg/dL (8.5-10.1)
[2022-03-05 19:57] LABS: ALBUMIN 4.2 g/dl (3.4-5.0)
[2022-03-05 20:00] LABS: CREATININE 0.6 mg/dL (0.55-1.3)
[2022-03-05] MEDS ORDERED: CEFTRIAXONE 1,000 MG in DEXTROSE 5%-WATER - 50 ML IVPB ONE ×2 (20:51→23:18)
[2022-03-05] MEDS ORDERED: CEFTRIAXONE 1 GM/50 ML BAG ONE (23:22)
[2022-03-06 00:15] VITALS: BP 149/74; PULSE 95; TEMP 98.9
== END 2022-03-06 00:15 | disposition home or self-care (01) ==
LOC: JER 16:22
DX: N10 Acute pyelonephritis (principal); N39.0 Urinary tract infection, site not specified
CPT/HCPCS: 36415; 74177-TC; 76775-TC; 80053; 81003; 84703; 85025; 87086; 87186; 96365; 99285-25; Q9967

== ENCOUNTER 2023-10-23 01:43 | Emergency (ER) | payer OTHER ==
[2023-10-23 01:51] VITALS: BP 133/80; PULSE 90; RESP 18; TEMP 98.3; BMI 34.2
[2023-10-23] MEDS ORDERED: ACETAMINOPHEN INJECTION 100 ML IVPB ONE (02:29)
[2023-10-23] MEDS: ACETAMINOPHEN 1000 MG/100 ML BAG IVPB ONE (02:57)
[2023-10-23 03:08] LABS: EPI CELLS 34 /uL (0-25.1); HCG,QUALITATIVE URINE Negative; HYALINE CASTS 1 /uL (0-3.1); PH,URINE 6.5 (5.0-8.0); URINE APPEARANCE CLOUDY; URINE BACTERIA 3120 /uL (0-1359); URINE BILIRUBIN NEGATIVE (NEGATIVE); URINE COLOR YELLOW; URINE GLUCOSE (UA) TRACE (NEGATIVE); URINE KETONE NEGATIVE (NEGATIVE); URINE LEUK ESTERASE 1+ (NEGATIVE); URINE NITRITE NEGATIVE (NEGATIVE); URINE PROTEIN 1+ (NEGATIVE); URINE RBC 183 /uL (0-23.9); URINE UROBILINOGEN 0.2 mg/dL (0.2-1.0); URINE WBC 389 /uL (0-25.8)
[2023-10-23 03:11] LABS: BASO % 0.5 % (0-2.0); HEMATOCRIT 39.7 % (32.4-45.2); HEMOGLOBIN 13.3 GM/dL (10.7-15.3); LYMPH % 12.9 % (8-40); MCH 29.2 pg (25.7-33.7); MCHC 33.4 g/dl (32.0-36.0); MEAN CELL VOLUME 87.3 fl (80-96); MEAN PLT VOLUME 7.1 fl (7.5-11.1); MONO % 3.6 % (3.8-10.2); PLATELET COUNT 420 10^3/uL (134-434); RBC 4.55 M/mm3 (3.60-5.2); RDW 13.9 % (11.6-15.6); WHITE BLOOD COUNT 14.9 K/mm3 (4.0-10.0)
[2023-10-23] MEDS ORDERED: CEFTRIAXONE 1 GM/50 ML BAG ONE (04:02)
[2023-10-23 05:59] LABS: POTASSIUM 3.8 mmol/L (3.5-5.1)
[2023-10-23 06:01] LABS: ALBUMIN 3.8 g/dl (3.4-5.0); CALCIUM 8.9 mg/dL (8.5-10.1)
[2023-10-23 06:02] LABS: BLOOD UREA NITROGEN 8.6 mg/dL (7-18)
[2023-10-23 06:04] LABS: CREATININE 0.6 mg/dL (0.55-1.3)
[2023-10-23 06:06] LABS: BILIRUBIN,TOTAL 0.2 mg/dL (0.2-1); TOT PROT 7.4 g/dl (6.4-8.2)
== END 2023-10-23 07:03 | disposition home or self-care (01) ==
LOC: JER 01:43
PROC: 3E03329 Introduction of Other Anti-infective into Peripheral Vein, Percutaneous Approach (ICD-10-PCS; principal; 2023-10-23)
PROC: 3E033NZ Introduction of Analgesics, Hypnotics, Sedatives into Peripheral Vein, Percutaneous Approach (ICD-10-PCS; 2023-10-23)
DX: R10.9 Unspecified abdominal pain (principal); N39.0 Urinary tract infection, site not specified
CPT/HCPCS: 36415; 74177-TC; 80053; 81003; 84703; 85025; 87086; 87186; 87491; 87591; 87661; 96374; 96375; 99285-25; J0131; Q9967